=== PATIENT | female | born 1980 | race Caucasian/White ===

== ENCOUNTER 2024-09-12 09:51 | Outpatient (OUT) | payer OTHER, MEDICARE, SELFPAY ==
--- NOTE | 2024-09-12 09:59 | XR_ITS ---
[address] [address] Patient Name: LETICIA BALBUENA MRN: [id number] date: 1980 Sex: F Assigned Patient Location: [facility] Current Patient Location: Accession/Order Number: [id number] Exam Date: 09/12/2024 10:10 Report Date: 09/13/2024 04:58 At the request of: SUZY MUHAMMAD Procedure: XR DEXA axial skeleton EXAMINATION: XR DEXA axial skeleton HISTORY: Cystic Fibrosis COMPARISON: DEXA bone densitometry 09/08/2009 TECHNIQUE: Dual-energy X-ray absorptiometry (DXA) was performed. FINDINGS: SPINE ANALYSIS: Average bone mineral density is 1.095 g/cm2. T-score (standard deviation relative to young adult mean): -0.7 . -2.9% change since prior study. HIP ANALYSIS: Lowest bone mineral density is within the right femoral neck, 0.731 g/cm2. T-score (standard deviation relative to young adult mean): -2.2 . -3.7% change since prior study. XR/XR DEXA axial skeleton IMPRESSION: World Health Organization Classification: Osteoporosis - High Fracture Risk FRAX: Cannot be calculated. Pharmacologic treatment recommendations * No uniform recommendation applies to all patients. Management plans must be individualized. * Consider initiating pharmacologic treatment in postmenopausal women and men >= 50 years of age who have the following: Primary fracture prevention: * T-score <= - 2.5 at the femoral neck, total hip, lumbar spine, 33% radius (some uncertainty with existing data) by DXA. * Low bone mass (osteopenia: T-score between - 1.0 and - 2.5) at the femoral neck or total hip by DXA with a 10-year hip fracture risk >= 3% or a 10-year major osteoporosis-related fracture risk >= 20% (i.e., clinical vertebral, hip, forearm, or proximal humerus) based on the [place]-adapted FRAXregistered model. Secondary fracture prevention: * Fracture of the hip or vertebra regardless of BMD [4, 5]. * Fracture of proximal humerus, pelvis, or distal forearm in persons with low bone mass (osteopenia: T-score between - 1.0 and - 2.5). The decision to treat should be individualized in persons with a fracture of the proximal humerus, pelvis, or distal forearm who do not have osteopenia or low BMD [12, 13]. Pepe MS, Kaya SL, Luis KL, Hema EM, Sudhir KG, AJ, Alfonso ES. The clinician's guide to prevention and treatment of osteoporosis. Osteoporos Int. 2021;33(10):7501-4812. doi: 10.1007/b49258-869-09356-k. Epub 2021Feb 03. Erratum in: Osteoporos Int. 2021May 05;: PMID: [id number]; PMCID: [id number]. Electronically authenticated by: JONA GANDHI Date: 09/13/2024 04:58
== END 2024-09-12 09:52 | disposition home or self-care (01) ==
LOC: RAD 09:54
PROVIDERS: PCP Family Medicine; Visit Provider Family Medicine
DX: E84.0 Cystic fibrosis with pulmonary manifestations (principal); M81.0 Age-related osteoporosis without current pathological fracture
CPT/HCPCS: 77080

== ENCOUNTER 2025-06-13 08:42 | Emergency (ER) | payer OTHER, MEDICARE, SELFPAY ==
[2025-06-13 08:45] VITALS: BP 156/100; PULSE 87; TEMP 36.7; O2SAT 97; BMI 29.7
--- NOTE | 2025-06-13 08:54 | XR_ITS ---
The [address] [address] Patient Name: LETICIA BALBUENA MRN: [id number] date: 1980 Sex: F Assigned Patient Location: ED.MAIN Current Patient Location: ED.MAIN Accession/Order Number: [id number] Exam Date: 06/13/2025 09:00 Report Date: 06/13/2025 09:25 At the request of: JACK BARR DO Procedure: XR foot LT min 3V CLINICAL DATA: Dorsal lateral left foot and ankle pain following fall down stairs this morning. LEFT ANKLE - 3 views COMPARISON: None AP, lateral and oblique views were obtained. There is no evidence of fracture or dislocation. The talar dome is intact. There is minor anterior soft tissues. XR/XR ankle LT min 3V IMPRESSION: NO ACUTE BONY INJURY. LEFT FOOT - 3 views COMPARISON: None AP, lateral and oblique views were obtained. There is no evidence of fracture or dislocation. A tiny plantar calcaneal spur is seen. There are no significant soft tissue abnormalities. IMPRESSION: NO ACUTE BONY INJURY. Impression dictated by: Capri Gottlieb M.D. 06/13/2025 9:25 AM Dictation [facility] Electronically authenticated by: [id number] Y Date: 06/13/2025 09:25
--- NOTE | 2025-06-13 08:54 | XR_ITS ---
The [address] [address] Patient Name: LETICIA BALBUENA MRN: [id number] date: 1980 Sex: F Assigned Patient Location: ED.MAIN Current Patient Location: ED.MAIN Accession/Order Number: [id number] Exam Date: 06/13/2025 09:00 Report Date: 06/13/2025 09:25 At the request of: JACK BARR DO Procedure: XR foot LT min 3V CLINICAL DATA: Dorsal lateral left foot and ankle pain following fall down stairs this morning. LEFT ANKLE - 3 views COMPARISON: None AP, lateral and oblique views were obtained. There is no evidence of fracture or dislocation. The talar dome is intact. There is minor anterior soft tissues. XR/XR foot LT min 3V IMPRESSION: NO ACUTE BONY INJURY. LEFT FOOT - 3 views COMPARISON: None AP, lateral and oblique views were obtained. There is no evidence of fracture or dislocation. A tiny plantar calcaneal spur is seen. There are no significant soft tissue abnormalities. IMPRESSION: NO ACUTE BONY INJURY. Impression dictated by: Capri Gottlieb M.D. 06/13/2025 9:25 AM Dictation Location: [facility] Electronically authenticated by: [id number] Y Date: 06/13/2025 09:25
--- NOTE | 2025-06-13 09:08 | ED.GENADUL1 ---
HPI HPI - General Adult General Chief complaint: Extremity Injury, Lower Stated complaint: FALL LOWER EXTREMITY PAIN Time Seen by Provider: 06/13/25 08:45 Source: patient Mode of arrival: Wheelchair Limitations: no limitations History of Present Illness HPI narrative: Patient is a 44-year-old female presenting to the emergency department for evaluation of a left ankle injury. Patient states that she was walking down the stairs when she tripped, and fell down 3 stairs just prior to arrival. She states that she rolled her left ankle. She was able to stand up and bear some weight on it. She denies numbness or tingling in the foot. She denies any other injuries. She did not hit her head or lose consciousness. She is on Eliquis for left lower extremity DVT. She states her leg is chronically swollen. Related Data Home Medications ?Medication ?Instructions ?Recorded ?Confirmed apixaban 2.5 mg tablet (Eliquis) 2.5 mg PO BID 06/13/25 06/13/25 sulfamethoxazole 400 1 tab PO BID 06/13/25 06/13/25 mg-trimethoprim 80 mg tablet (Bactrim) Allergies Allergy/AdvReac Type Severity Reaction Status Date / Time amoxicillin Allergy Severe Difficulty Verified 06/13/25 08:56 Breathing cephalexin (From Keflex) Allergy Severe Hives Verified 06/13/25 08:56 clindamycin Allergy Severe Hives Verified 06/13/25 08:56 heparin Allergy Severe other Verified 06/13/25 08:56 latex Allergy Severe Hives Verified 06/13/25 08:56 Opioid HPI Opioid Management Most Recent Opioid Data: Last Pain Scale 6 Today, 08:45 Review of Systems ROS Status of ROS 10 or more systems reviewed and unremarkable except as noted in history and below [facility] Medical History (Updated 06/13/25 @ 09:33 by Bo Espinoza DO) Deep vein thrombosis ?I82.409 - Acute embolism and thrombosis of unspecified deep veins of unspecified lower extremity (ICD-10) Social History Little interest or pleasure in doing things: not at all Feeling down, depressed, or hopeless: not at all Exam Narrative Exam Narrative: CONSTITUTIONAL: Well-appearing, answering questions and following commands appropriately HEAD: Atraumatic, normocephalic SKIN: Was warm and dry. EYES: Sclerae white. EARS, NOSE, THROAT: Moist oral mucosa. RESPIRATORY: Nonlabored respirations. CARDIOVASCULAR: 2+ DP pulse on the left. The foot feels warm and well-perfused GASTROINTESTINAL: Abdomen is nondistended. MUSCULOSKELETAL: There is tenderness to palpation about the dorsum of the proximal left foot. No tenderness at the medial/medial malleoli. No tenderness at the base of the fifth metatarsal. She has limited range of motion with plantar/dorsiflexion secondary to pain. Able to wiggle all of her toes. No tenderness throughout the tibial shaft or in the knee. No deformities. Compartments soft and compressible NEUROLOGIC: Patient is awake and alert. Sensation intact to light touch throughout the left foot/ankle. Limited strength secondary to pain. Constitutional Vital Signs, click to edit/add: Last Vital Signs Temp 98.1 F 06/13/25 08:45 Pulse 87 06/13/25 08:45 Resp 18 06/13/25 08:45 BP 156/100 H 06/13/25 08:45 Pulse Ox 97 06/13/25 08:45 O2 Del Method Room Air 06/13/25 08:45 Course Vital Signs Vital signs: Vital Signs Temperature 98.1 F 06/13/25 08:45 Pulse Rate 87 06/13/25 08:45 Respiratory Rate 18 06/13/25 08:45 Blood Pressure 156/100 H 06/13/25 08:45 Pulse Oximetry 97 06/13/25 08:45 Oxygen Delivery Method Room Air 06/13/25 08:45 Temperature 98.1 F 06/13/25 08:45 Pulse Rate 87 06/13/25 08:45 Respiratory Rate 18 06/13/25 08:45 Blood Pressure 156/100 H 06/13/25 08:45 Pulse Oximetry 97 06/13/25 08:45 Oxygen Delivery Method Room Air 06/13/25 08:45 Medical Decision Making MDM Narrative Medical decision making narrative: Patient is a 44-year-old female presenting to the emergency department for evaluation of the left foot/ankle injury after a mechanical fall down 3 stairs just prior to arrival. Vital signs are normal. Her examination is noted above, however is notable for tenderness to palpation throughout the dorsum of the left foot. The foot is neurovascular intact with good perfusion. Differential diagnosis includes left ankle sprain, ankle/foot fracture, bony contusions. X-rays were obtained. X-rays of the left foot and ankle independently reviewed/interpreted by myself and radiology demonstrated no acute osseous abnormalities. I do believe the patient is stable for discharge at this time. Patient's presentation is most likely consistent with an acute ankle sprain. They were instructed to follow up with orthopedic surgery in a week if her symptoms persist. Return precautions were given including any new or worsening symptoms. They were given RICE precautions and her ankle was placed in an Ivan bandage. Patient understands and agrees to the plan. FINAL IMPRESSION: #Acute left ankle sprain DISPOSITION: Discharged home CONDITION: Good Imaging Data left ankle xray: Attestation: I personally reviewed and interpreted this imaging study as follows: Radiologist's impression: ITS Impressions Ankle X-Ray 06/13/25 08:54 IMPRESSION: NO ACUTE BONY INJURY. LEFT FOOT - 3 views COMPARISON: None AP, lateral and oblique views were obtained. There is no evidence of fracture or dislocation. A tiny plantar calcaneal spur is seen. There are no significant soft tissue abnormalities. IMPRESSION: NO ACUTE BONY INJURY. Impression dictated by: Capri Gottlieb M.D. 06/13/2025 9:25 AM Dictation Location: [employer] Electronically authenticated by: [id number] Y Date: 06/13/2025 09:25 Foot X-Ray 06/13/25 08:54 IMPRESSION: NO ACUTE BONY INJURY. LEFT FOOT - 3 views COMPARISON: None AP, lateral and oblique views were obtained. There is no evidence of fracture or dislocation. A tiny plantar calcaneal spur is seen. There are no significant soft tissue abnormalities. IMPRESSION: NO ACUTE BONY INJURY. Impression dictated by: Capri Gottlieb M.D. 06/13/2025 9:25 AM Dictation Location: [employer] Electronically authenticated by: [id number] Y Date: 06/13/2025 09:25 Discharge Plan Discharge Chief Complaint: Extremity Injury, Lower Clinical Impression: Ankle sprain and strain Patient Disposition: Home, Self-Care Time of Disposition Decision: 09:32 Condition: Good Mode of Transportation: Private Vehicle Prescriptions / Home Meds: No Action Eliquis 2.5 mg tablet 2.5 mg PO BID sulfamethoxazole-trimethoprim [Bactrim] 400-80 mg tablet 1 tab PO BID Print Language: Georgian Instructions: Ankle Sprain (ED) Additional Instructions: Follow up with ortho in 1 week should symptoms persist. Referrals: Will Spear DO [Physician, Orthopedics] - 1 week Clinical Impression: Ankle sprain and strain Cinthia Franz MD [Primary Care Provider, Family Practice] - 1 week
== END 2025-06-13 09:43 | disposition home or self-care (01) ==
PROVIDERS: Emergency Provider Student in an Organized Health Care Education/Training Program; PCP Family Medicine
DX: S93.402A Sprain of unspecified ligament of left ankle, initial encounter (principal); S96.912A Strain of unspecified muscle and tendon at ankle and foot level, left foot, initial encounter; W10.8XXA Fall (on) (from) other stairs and steps, initial encounter; X50.1XXA Overexertion from prolonged static or awkward postures, initial encounter; Z79.01 Long term (current) use of anticoagulants; I82.402 Acute embolism and thrombosis of unspecified deep veins of left lower extremity
CPT/HCPCS: 73610; 73630; 99284

== ENCOUNTER 2025-06-24 12:51 | Outpatient (RCR) | payer OTHER, MEDICARE, SELFPAY | END 2025-08-07 09:56 | disposition home or self-care (01) | LOC: PT 12:51 | PROVIDERS: PCP Family Medicine; Visit Provider Physician Assistant | DX: M25.572 Pain in left ankle and joints of left foot (principal) | CPT/HCPCS: 97110; 97112; 97162 ==

== ENCOUNTER 2025-07-24 11:53 | Outpatient (RCR) | payer OTHER, MEDICARE, SELFPAY | END 2025-07-25 11:01 | disposition home or self-care (01) | LOC: OT 11:53 | PROVIDERS: PCP Family Medicine; Visit Provider Family Medicine | DX: I89.0 Lymphedema, not elsewhere classified (principal); Z86.718 Personal history of other venous thrombosis and embolism | CPT/HCPCS: 97167; 97535 ==

== ENCOUNTER 2025-07-27 10:18 | Emergency (ER) | payer OTHER, MEDICARE, SELFPAY ==
[2025-07-27 10:21] VITALS: BP 174/90; PULSE 96; TEMP 36.9; O2SAT 98; BMI 31.3
--- NOTE | 2025-07-27 10:35 | ED.GENADUL1 ---
HPI HPI - General Adult General Chief complaint: Nausea/Vomiting/Diarrhea Stated complaint: DIARRHEA Time Seen by Provider: 07/27/25 10:29 Source: patient Mode of arrival: walk-in History of Present Illness HPI narrative: 44-year-old female presents for diarrhea. She has had it for a few days. Its been watery and no blood in it. No fever. She was around 2 family members who had the same symptoms this past week. She does not complain of nausea or vomiting. Related Data Home Medications ?Medication ?Instructions ?Recorded ?Confirmed apixaban 2.5 mg tablet (Eliquis) 2.5 mg PO BID 06/13/25 07/27/25 albuterol sulfate 90 mcg/actuation 2 puff inhalation Q6H PRN 07/27/25 07/27/25 aerosol inhaler shortness of breath or wheezing losartan 25 mg tablet 25 mg PO DAILY 07/27/25 07/27/25 triamcinolone acetonide 0.1 % 1 applic topical BID 07/27/25 07/27/25 topical cream Allergies Allergy/AdvReac Type Severity Reaction Status Date / Time amoxicillin Allergy Severe Difficulty Verified 06/13/25 08:56 Breathing cephalexin (From Keflex) Allergy Severe Hives Verified 06/13/25 08:56 clindamycin Allergy Severe Hives Verified 06/13/25 08:56 heparin Allergy Severe other Verified 06/13/25 08:56 latex Allergy Severe Hives Verified 06/13/25 08:56 Opioid HPI Opioid Management Most Recent Opioid Data: Last Pain Scale 6 06/13/25, 08:45 Review of Systems ROS Narrative A ten point review of systems is negative except as noted above. [facility] Medical History (Updated 07/27/25 @ 11:51 by Jeet Breen MD) Deep vein thrombosis ?I82.409 - Acute embolism and thrombosis of unspecified deep veins of unspecified lower extremity (ICD-10) Social History Little interest or pleasure in doing things: not at all Feeling down, depressed, or hopeless: not at all Exam Narrative Exam Narrative: Nurses note and vital signs reviewed General:The patient appears well and in no apparent distress.Patient is resting comfortably on cart. Skin:Warm, dry, no pallor noted.There is no rash noted. Head:Normocephalic, atraumatic Eye: Normal conjunctiva, no drainage Ears, Nose, Mouth, and Throat: oral mucosa is moist. Nares patent. Cardiovascular:Regular Rate and Rhythm Respiratory:Patient is in no distress, no accessory muscle use, lungs are clear to auscultation, no wheezing, rales or rhonchi Back:non-tender GI: Soft and nontender nondistended Musculoskeletal: The patient has no evidence of calf tenderness, no pitting edema, symmetrical pulses noted bilaterally Neurological:A&O, normal speech Psychiatric:Cooperative Constitutional Vital Signs, click to edit/add: Last Vital Signs Temp 98.5 F 07/27/25 10:21 Pulse 96 H 07/27/25 10:21 Resp 16 07/27/25 10:21 BP 174/90 H 07/27/25 10:21 Pulse Ox 98 07/27/25 10:21 Course Vital Signs Vital signs: Vital Signs Temperature 98.5 F 07/27/25 10:21 Pulse Rate 96 H 07/27/25 10:21 Respiratory Rate 16 07/27/25 10:21 Blood Pressure 174/90 H 07/27/25 10:21 Pulse Oximetry 98 07/27/25 10:21 Temperature 98.5 F 07/27/25 10:21 Pulse Rate 96 H 07/27/25 10:21 Respiratory Rate 16 07/27/25 10:21 Blood Pressure 174/90 H 07/27/25 10:21 Pulse Oximetry 98 07/27/25 10:21 Medical Decision Making MDM Narrative Medical decision making narrative: Blood work is nonspecific. WBC is 1.4 but this is her baseline and she sees a agronomy professor for that issue. It has been worked up extensively. She was given IV fluids and is able to be discharged home. Treatment diagnosis and follow-up were discussed with the patient. Stool culture and C. difficile test are pending. Differential Diagnosis Differential Diagnosis: Viral gastroenteritis, bacterial gastroenteritis, dehydration Lab Data Lab results reviewed: Yes I reviewed the patient's lab results Labs: Lab Results 07/27/25 Range/Units 10:57 WBC 1.4 L (4.0-11.0) 10^3/uL RBC 4.70 (4.20-5.40) 10^6/uL Hgb 14.8 (12.0-16.0) g/dL Hct 42.5 (36.0-48.0) % MCV 90.4 (81.0-99.0) fL MCH 31.5 (26.7-34.0) pg MCHC 34.8 (29.9-35.2) g/dL RDW 11.6 (11.0-15.0) % Plt Count 148 L (150-450) 10^3/uL MPV 10.0 (9.5-13.5) fL Seg Neuts % (Manual) 58.0 (43.0-75.0) Band Neutrophils % 2.0 (0-5) % Lymphocytes % (Manual) 28.0 (20.5-60.0) % Monocytes % (Manual) 10.0 (1.7-12.0) % Eosinophils % (Manual) 2.0 (0.9-7.0) % Basophils % (Manual) 0.0 L (0.2-2.0) % Neutrophils # (Manual) 0.81 L (1.4-6.5) 10^3/uL Band Neutrophils # 0.0 (0.0-0.3) 10^3/uL Lymphocytes # (Manual) 0.39 L (1.20-3.80) 10^3/uL Monocytes # (Manual) 0.14 L (0.30-0.80) 10^3/uL Eosinophils # (Manual) 0.02 (0.00-0.70) 10^3/uL Basophils # (Manual) 0.00 (0.00-0.10) 10^3/uL Sodium 136 (136-145) mmol/L Potassium 3.6 (3.5-5.1) mmol/L Chloride 101 (98-107) mmol/L Carbon Dioxide 26.3 (21.0-32.0) mmol/L Anion Gap 12.3 BUN 7.0 (7.0-18.0) mg/dL Creatinine 0.81 (0.55-1.02) mg/dL Est GFR ( Amer) >60 (>=60 mL/min/1.73m^2) Est GFR (Non-Af Amer) >60 (>=60 mL/min/1.73m^2) BUN/Creatinine Ratio 8.6 Glucose 89 (74-106) mg/dL Calcium 8.8 (8.5-10.1) mg/dL Discharge Plan Discharge Chief Complaint: Nausea/Vomiting/Diarrhea Clinical Impression: Diarrhea Patient Disposition: Home, Self-Care Time of Disposition Decision: 11:51 Condition: Good Mode of Transportation: Private Vehicle Prescriptions / Home Meds: No Action albuterol sulfate 90 mcg/actuation HFA aerosol inhaler 2 puff INHALATION Q6H PRN (Reason: shortness of breath or wheezing) losartan 25 mg tablet 25 mg PO DAILY triamcinolone acetonide 0.1 % cream 1 applic TOPICAL BID Eliquis 2.5 mg tablet 2.5 mg PO BID Print Language: Bengali Instructions: Acute Diarrhea (ED) Referrals: Cinthia Franz MD [Primary Care Provider, Family Practice] - 1 week
--- OUTSIDE RECORDS SUMMARY | 2025-07-27 10:55 | XMS_ITS | CCD ---
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 Role Phone Valentin Hunt Unavailable Sarabjit Artis Unavailable [phone] Suzy Muhammad Unavailable OKSANA, DR JONA Talbot Consulting Unavailable RIVAS, DR ALEX Alanis Attending Unavailabl e RIVAS, DR ALEX Alanis Admitting Unavailliat e MUHAMMAD, DR SUZY Mike Primary Care Unavailable YOSI ., ART ROLAND Consulting Unavailliat e JB, DR SUZY Mike Attending Unavailable OKSANA, DR JONA Talbot Consulting Unavailable JB, DR SUZY Mike Primary Care Unavailable JB, DR SUZY Mike Admitting Unavailable MUHAMMAD, DR SUZY Mike Consulting Unavailable MUHAMMAD, DR SUZY Mike Attending Unavailable OKSANA, DR JONA Talbot Consulting Unavailable JB, DR SUZY Mike Primary Care Unavailable MUHAMMAD, DR SUZY Mike Admitting Unavailable MUHAMMAD, DR SUZY Mike Consulting Unavailable Kelley Perez Unavailable Unavailable Primary Care Provider UnavailOvi Lehman DO Primary Care Provider CYNTHIA PORTILLO Attending Unavailable Suzy Muhammad MD Primary Care Provider Marlys Christianson APRN Attending Provider Michelle Spear APRN Attending Provider Merle Coelho CMA Attending Provider Unavaila Will Mendoza DO Attending Provider [phone] Suzy Muhammad MD Primary Care Provider Suzy Muhammad MD Attending Provider Allergies Allergy Classification Reported Allergen(s) Allergy Type Date of Onset Reaction(s) Facility (20 sources) Amoxicillin Drug Allergy 04-17-20 17 [facility] (13 sources) Cephalexin Drug Allergy 04-17-20 17 [facility] (20 sources) Ciprofloxacin Drug Allergy 04-17-20 17 [facility] (19 sources) Latex Propensity to adverse reactions 01-19-20 24 [facility] (12 sources) levoFLOXacin; Translations: [Levaquin] Drug Allergy 03-16-20 14 rash [facility] Repository (20 sources) moxifloxacin Drug Allergy 06-29-20 07 [facility] (9 sources) Heparin Combination Drug allergy made blood clot bigger [facility] [employer] Other (10 sources) Cephalexin; Translations: [Keflex] Drug Allergy 01-01-20 17 rash [facility] Repository (1 source) Amoxicillin Drug Allergy 06-04-20 13 [facility] (1 source) Ciprofloxacin Drug Allergy 01-01-20 17 [facility] (9 sources) Clindamycin Drug Allergy 01-19-20 24 Unknown Reaction [facility] (1 source) heparin Drug Allergy 06-04-20 13 [facility] (1 source) Latex Drug allergy (disorder) 01-01-20 17 [facility] (1 source) moxifloxacin Drug Allergy 01-01-20 17 [facility] (13 sources) Clarithromycin Drug Allergy 06-07-20 13 Unknown, Unknown Reaction [facility] Comment on above: Onset Date: 06/07/20 13 (11 sources) Clindamycin Drug Allergy 05-30-20 17 Diarrhea [facility] [employer] Other (16 sources) heparin Drug Allergy 06-07-20 13 Unknown, Unknown Reaction [facility] Comment on above: Onset Date: 06/07/20 13 (5 sources) Pseudoephedrine Drug Allergy Unknown [facility] Other (3 sources) Allergies Reconciled Propensity to adverse reactions Unknown [facility] Other (3 sources) Heparin (Porcine) in NaCl Drug allergy Unknown [facility] Other (3 sources) Biaxin *MACROLIDES* Propensity to adverse reactions Unknown [facility] Other (3 sources) Avelox *FLUOROQUINOLONES* Propensity to adverse reactions Unknown [facility] Other (3 sources) patient allergy list reviewed by nurse or physicia Propensity to adverse reactions 05-13-20 19 Comment:Done [facility] Other (3 sources) Keflex *CEPHALOSPORINS* Propensity to adverse reactions Unknown [facility] Other (11 sources) levoFLOXacin Drug Allergy 06-29-20 07 Anaphylaxis [facility] (8 sources) 12 Hour Decongestant Allergy to substance 12-07-19 24 Unknown Reaction [facility] (3 sources) heparin Drug Allergy 06-29-20 07 [facility] (3 sources) Latex Allergy to substance 04-17-20 17 Rash [facility] Healthcare Medications Current Medications Medication Drug Class(es) Dates Sig (Normalized) Sig (Original) [id number] 200 actuat albuterol 0.09 mg/actuat metered dose inhaler (17 sources) beta2-Adrenergic Agonist Start: 12-06-2023 End: 07-14-2025 Albuterol Sulfate 90 mcg/actuation HFA aerosol inhaler Active 2 PUFF INHALATION every 6 to 8 hours as needed for shortness of breath or wheezing 8.5 July 14, 2025 10:29am Complies with drug therapy take 2 puff(s) by in halation four times daily as needed for wheezing Albuterol Sulfate HFA 108 (90 Base) MCG/ACT INHALE 2 PUFFS 4 TIMES DAILY NEEDED FOR SHORTNESS OF BREATH OR WHEEZING for 25 Active take 2 puff(s) by in halation four times daily as needed for wheezing Albuterol Sulfate HFA 108 (90 Base) MCG/ACT INHALE 2 PUFFS 4 TIMES DAILY NEEDED FOR SHORTNESS OF BREATH OR WHEEZING for 25 Active take 2 puff(s) by in halation four times daily as needed for wheezing Albuterol Sulfate HFA 108 (90 Base) MCG/ACT INHALE 2 PUFFS 4 TIMES DAILY NEEDED FOR SHORTNESS OF BREATH OR WHEEZING for 25 Active apixaban 2.5 mg oral tablet (20 sources) Factor Xa Inhibitor Start: 05-15-2025 take 1 tablet by mouth in the morning Eliquis 2.5 MG tablet Take 2.5 mg by mouth in the morning and 2.5 mg before bedtime. 05/15/2025 Active Start: 03-21-2024 End: 06-30-2025 take 1 tablet by mouth twice daily Apixaban (Eliquis) 2.5 mg tablet Active 0 .ROUTE .COMPLEX 42 June 30, 2025 8:38am TAKE 1 TABLET BY MOUTH TWICE A DAY FOR 30 DAYS Complies with drug therapy Start: 12-06-2023 End: 03-21-2024 take 1 tablet by mouth twice daily Apixaban (Eliquis) 2.5 mg tablet Discontinued 2.5 MG PO Twice daily December 06, 2023 1:00am March 21, 2024 2:58pm take 1 tablet by corinne th twice daily Eliquis 2.5 MG TAKE 1 TABLET BY MOUTH TWICE A DAY for 30 Active biotin 5 mg oral tablet (19 sources) Start: 12-06-2023 take 1 tablet by mouth once daily Biotin 5 mg tablet Active 5 MG PO Daily December 06, 2023 1:00am Complies with drug therapy Biotin Active cholecalciferol 0.025 mg oral capsule (8 sources) Vitamin D Start: 12-06-2023 take 1 capsule by mouth once daily Cholecalciferol (Vitamin D3) 25 mcg (1,000 unit) capsule Active 25 MCG PO Daily December 06, 2023 1:00am Complies with drug therapy fluconazole 150 mg oral tablet (4 sources) Azole Antifungal Start: 06-02-2025 End: 06-02-2025 take 1 tablet by mouth once, then take 1 tablet by mouth once fluconazole (Diflucan) 150 MG tablet Indications: Yeast infection Take 1 tablet (150 mg) by mouth 1 (one) time for 1 dose This is a 1 time dose, take single tablet by mouth. 1 tablet 1 06/02/2025 06/02/2025 Active Start: 12-27-2022 take 1 tablet by mouth once Fl uconazole 150 MG 1 tablet Orally once for 10 days Dec, Active hydroxychloroquine sulfate 200 mg oral tablet (6 sources) Antimalarial, Antirheumatic Agent Hydroxychloroquine Sulfate 200 MG as directed Orally DIRECTED Active Iron (2 sources) take 1 tablet by mouth three times weekly Iron 325 (65 Fe) MG 1 tablet Orally 3 TIMES A WEEK Active losartan potassium 25 mg oral tablet (1 source) Angiotensin 2 Receptor Placido Start: 2024 take 1 tablet by mouth once daily Losartan 25 mg tablet Active 25 MG PO Daily July 14, 2025 12:00am Complies with drug therapy Multivitamin preparation (14 sources) Start: 2023 take 1 tablet by mouth once daily Multivitamin Active 1 TAB PO Daily December 06, 2023 1:00am Multivitamin Act tamiko Multivitamin tablet (5 sources) Start: 12-06-2023 take 1 tablet by mouth once daily Multivitamin tablet Active 1 TAB PO Daily December 06, 2023 1:00am Complies with drug therapy Start: 12-06-2023 take 1 tablet by corinne th once daily Multivitamin tablet Active 1 TAB PO Daily December 06, 2023 1:00am Start: 12-06-2023 take 1 tablet by corinne th once daily Multivitamin tablet Active 1 TAB PO Daily December 06, 2023 12:00am nystatin [id number] unt/ml oral suspension (20 sources) Polyene Antifungal Start: 12-06-2023 End: 07-14-2025 take 1 mL by mouth four times daily as needed take 5 mL by mouth f our times daily as needed Nystatin [id number] UNIT/ML TAKE 5 ML BY CORINNE TH 4 TIMES DAILY NEEDED for 20 Active take 5 mL by mouth f our times daily as needed Nystatin [id number] UNIT/ML TAKE 5 ML BY CORINNE TH 4 TIMES DAILY NEEDED for 20 Active Nystatin Active pantoprazole 40 mg delayed release oral tablet (20 sources) Proton Pump Inhibitor Start: 12-06-2023 take 1 tablet by mouth once daily Pantoprazole (Protonix) 40 mg tablet,delayed release (DR/EC) Active 40 MG PO Daily December 06, 2023 1:00am Complies with drug therapy Start: 08-10-2021 take 1 tablet by corinne th every twelve hours Pantoprazole Sodium 40 MG 1 tablet Orally TWICE A DAY for 90 days Aug, Active take 1 tablet by corinne th every twenty-four hours Protonix 40 MG 1 tablet Orally Once a day Active sulfamethoxazole 800 mg / trimethoprim 160 mg oral tablet (3 sources) Dihydrofolate Reductase Inhibitor Antibacterial, Sulfonamide Antimicrobial Start: 06-02-2025 End: 06-07-2025 take 1 tablet by mouth once in the morning, then take 1 tablet by mouth once at bedtime sulfamethoxazole-trimethoprim (Bactrim DS) 800-160 MG per tablet Indications: Vaginal discharge Take 1 tablet by mouth in the morning and 1 tablet before bedtime. Do all this for 5 days. 10 tablet 06/02/2025 06/07/2025 Active triamcinolone acetonide 1 mg/ml topical cream (12 sources) Corticosteroid Start: 07-14-2025 End: 07-14-2025 Triamcinolone Acetonide 0.1 % cream Active 1 APPLIC TOPICAL Twice daily as needed for rash July 14, 2025 10:29am Complies with drug therapy Start: 12-06-2023 End: 07-14-2025 Triamcinolone Acetonide 0.1 % cream Discontinued 1 APPLIC TOPICAL Twice daily December 06, 2023 1:00am July 14, 2025 10:09am Start: 09-13-2023 Triamcinolone Acetonide 0.1 % 1 application Externally Twice a day for 10 days Sep, Active Start: 09-13-2023 Triamcinolone Acetonide 0.1 % 1 application Externally Twice a day for 10 days Sep, Active Vitamin D3 (11 sources) Vitamin D3 Activ e Completed/Discontinued Medications Medication Drug Class(es) Dates Sig (Normalized) Sig (Original) azithromycin 250 mg oral tablet (12 sources) Macrolide Antimicrobial Start: 03-30-2025 End: 06-19-2025 Azithromycin (Zithromax) 250 mg tablet Discontinued 0 PO .COMPLEX March 30, 2025 12:00am June 19, 2025 10:55am For 250 mg dose pack: take 500 mg today (day 1), then 250 mg for 4 days (days 2-5) PO Start: 07-18-2024 End: 08-19-2024 Azithromycin 250 mg tablet D iscontinued 0 PO .COMPLEX July 18, 2024 12:00am August 19, 2024 10:55am For 250 mg dose pack: take 500 mg today (day 1), then 250 mg for 4 days (days 2-5) PO Start: 07-18-2024 Azithromycin A ctive 0 PO .COMPLEX July 18, 2024 12:00am For 250 mg dose pack: take 500 mg today (day 1), then 250 mg for 4 days (days 2-5) PO Start: 10-11-2023 Azithromycin 2 50 MG 2 tablet on the first day, then 1 tablet daily for 4 days Orally Once a day for 5 day(s) Oct, Active Start: 12-08-2022 Azithromycin 2 50 MG as directed Orally 2 tabs po today, then 1 tab daily x 4 more days for 5 Dec, Active benzonatate 200 mg oral capsule (2 sources) Non-narcotic Antitussive Start: 03-30-2025 End: 07-14-2025 take 1 capsule by mouth twice daily as needed for cough Benzonatate 200 mg capsule Discontinued 200 MG PO Twice daily as needed for cough March 30, 2025 12:00am July 14, 2025 10:08am ferrous sulfate 325 mg oral tablet (17 sources) Start: 12-06-2023 End: 11-06-2024 take 1 tablet by mouth three times weekly Ferrous Sulfate 325 mg (65 mg iron) tablet Discontinued 0 PO .COMPLEX December 06, 2023 1:00am November 06, 2024 10:25am 1 tablet Orally 3 TIMES A WEEK Start: 12-06-2023 End: 11-06-2024 take 1 tablet by mouth three times weekly Ferrous Sulfate 325 mg (65 mg iron) tablet Discontinued 0 PO .COMPLEX December 06, 2023 1:00am November 06, 2024 10:25am 1 tablet Orally 3 TIMES A WEEK Start: 12-06-2023 End: 11-06-2024 take 1 tablet by mouth three times weekly Ferrous Sulfate 325 mg (65 mg iron) tablet Discontinued 0 PO .COMPLEX December 06, 2023 12:00am November 06, 2024 9:25am 1 tablet Orally 3 TIMES A WEEK Start: 12-06-2023 [facility] Ferrous Sulfate 325 mg (65 mg iron) tablet Active 0 PO .COMPLEX December 06, 2023 12:00am 1 tablet Orally 3 TIMES A WEEK Start: 12-06-2023 [facility] Ferrous Sulfate Active 0 PO .COMPLEX December 06, 2023 1:00am 1 tablet Orally 3 TIMES A WEEK take 1 tablet by [facility] three times weekly Iron 325 (65 Fe) MG 1 tablet Orally 3 TIMES A WEEK Active fluticasone propionate 0.05 mg/actuat metered dose nasal spray (16 sources) Corticosteroid Start: 12-07-2023 End: 08-19-2024 take 1 spray(s) nasal route twice daily Fluticasone Propionate (Flonase Allergy Relief) 50 mcg/actuation spray,suspension Discontinued 1 SPRAY INTRANASAL Twice daily December 20, 2023 8:20am August 19, 2024 10:56am administer into each nostril metroNIDAZOLE 500 mg oral tablet (2 sources) Nitroimidazole Antimicrobial Start: 06-19-2025 End: 07-14-2025 take 1 tablet by mouth twice daily Metronidazole 500 mg tablet Discontinued 500 MG PO Twice daily June 19, 2025 12:00am July 14, 2025 10:08am predniSONE 10 mg oral tablet (20 sources) Start: 03-12-2024 End: 08-19-2024 take 1 tablet by mouth twice daily Prednisone 10 mg tablet Discontinued 0 .ROUTE .COMPLEX 42 August 15, 2024 9:25am August 19, 2024 10:56am TAKE 1 TABLET BY MOUTH TWICE A DAY Start: 02-15-2024 End: 03-12-2024 take 1 tablet by mouth twice daily Prednisone 10 mg tablet Discontinued 10 MG PO Twice daily February 15, 2024 12:00am March 12, 2024 3:31pm Start: 01-19-2024 End: 02-15-2024 take 1 tablet by mouth twice daily Prednisone 20 mg tablet Discontinued 20 MG PO Twice daily January 19, 2024 12:00am February 15, 2024 12:24pm take 1 tablet by corinne every twenty-four hours predniSONE 20 MG 1 tablet Orally Once a day for 5 days Not-Taking/PRN take 1 tablet by corinne once daily prednisone 10 mg 1 tablet Orally Once a day for 7 days Active take 1 tablet by corinne twice daily as needed predniSONE 20 MG 1 tablet Orally BID PRN for 5 days Active tiZANidine 2 mg oral tablet (10 sources) Central alpha-2 Adrenergic Agonist Start: 12-06-2023 End: 01-19-2024 take 1 tablet by mouth three times daily as needed Tizanidine 2 mg tablet Discontinued 2 MG PO Three times daily as needed December 06, 2023 1:00am January 19, 2024 9:54am Start: 09-13-2023 take 1 tablet by corinne every eight hours tiZANidine HCl 2 MG 1 tablet as needed Orally Three times a day for 10 days Sep, Active Problems Active Problems Problem Classification Problem Date Documented Date Episodic/Chronic Acute and chronic tonsillitis (1 source) Acute tonsillitis, unspecified Episodic Acute bronchitis (5 sources) Acute bronchitis; Translations: [Acute bronchitis, unspecified] Episodic Allergic reactions (7 sources) Atopic dermatitis; Translations: [Atopic dermatitis, unspecified] Chronic Allergic reactions (10 sources) Allergy to peanut; Translations: [Allergy to peanuts] Onset: 4 Episodic Chronic obstructive pulmonary disease and bronchiectasis (13 sources) Bronchitis, not specified as acute or chronic; Translations: [Bronchitis] Episodic Coagulation and hemorrhagic disorders (18 sources) Hypercoagulability state; 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 Cystic fibrosis (20 sources) Cystic fibrosis of the lung; 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] Onset: 7 Chronic Diseases of mouth; excluding dental (5 sources) Recurrent aphthous stomatitis; Translations: [Recurrent oral aphthae] Episodic Diseases of white blood cells (5 sources) Neutropenia; Translations: [Neutropenia, unspecified] Onset: 5 Chronic Esophageal disorders (20 sources) Gastroesophageal reflux disease; Translations: [Gastro-esophageal reflux disease without esophagitis] Onset: 1 Resolved: 2 Chronic Genitourinary symptoms and ill-defined conditions (2 sources) Urinary symptoms ; Translations: [Unspecified symptoms and signs involving the genitourinary system] 06-02-2025 Episodic Immunity disorders (5 sources) Predominantly T-cell defect; 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 Immunizations and screening for infectious disease (5 sources) Vaccination given; Translations: [Encounter for immunization] Episodic Menopausal disorders (5 sources) Premenopausal menorrhagia; Translations: [Excessive bleeding in the premenopausal period] Onset: 9 Chronic Menstrual disorders (5 sources) Intermenstrual bleeding - irregular; Translations: [Excessive and frequent menstruation with irregular cycle] Chronic Mycoses (19 sources) Candidiasis of mouth; Translations: [Candidal stomatitis] 07-24-2024 Episodic Nonmalignant breast conditions (16 sources) Breast lump; Translations: [Unspecified lump in the left breast, unspecified quadrant] Onset: 2 Episodic Osteoporosis (12 sources) Age-related osteoporosis without current pathological fracture; Translations: [Primary osteoporosis] Onset: 2 11-06-2024 Chronic Other connective tissue disease (8 sources) Pain in limb; Translations: [Pain in left leg] Episodic Other connective tissue disease (5 sources) Pain in left lower limb; Translations: [Pain in left leg] Episodic Other ear and sense organ disorders (3 sources) Otalgia, right ear; Translations: [Right ear pain] 04-01-2025 Episodic Other female genital disorders (5 sources) Abnormal vaginal bleeding; Translations: [Other disorder of menstruation and other abnormal bleeding from female genital tract] Onset: 5 Chronic Other female genital disorders (2 sources) Vaginal discharge; Translations: [Other specified noninflammatory disorders of vagina] 06-02-2025 Episodic Other gastrointestinal disorders (11 sources) Dysphagia; Translations: [Dysphagia, unspecified] Episodic Other nutritional; endocrine; and metabolic disorders (5 sources) Body mass index 25-29 - overweight; Translations: [Body mass index (BMI) 26.0-26.9, adult] Episodic Other screening for suspected conditions (not mental disorders or infectious disease) (8 sources) Patient encounter status; Translations: [Encounter for screening mammogram for malignant neoplasm of breast] 11-06-2024 Episodic Other skin disorders (5 sources) Acquired keratoderma; Translations: [Acquired keratosis [keratoderma] palmaris et plantaris] Episodic Other skin disorders (1 source) Localized swelling, mass and lump, right lower limb Episodic Other skin disorders (6 sources) Rash and other nonspecific skin eruption; Translations: [Rash of face] 02-15-2024 Episodic Other upper respiratory disease (8 sources) Allergic rhinitis; Translations: [Allergic rhinitis, unspecified] 12-07-2023 Chronic Other upper respiratory disease (4 sources) Allergic rhinitis, unspecified; Translations: [Allergic rhinitis, cause unspecified] 12-07-2023 Chronic Other upper respiratory infections (5 sources) Chronic sinusitis; Translations: [Chronic sinusitis, unspecified] Chronic Other upper respiratory infections (9 sources) Acute maxillary sinusitis; Translations: [Acute recurrent maxillary sinusitis] Onset: 7 Episodic Otitis media and related conditions (10 sources) Dysfunction of eustachian tube; Translations: [Unspecified Eustachian tube disorder, unspecified ear] 12-07-2023 Episodic Phlebitis; thrombophlebitis and thromboembolism (20 sources) Personal history of other venous thrombosis and embolism; Translations: [History of thrombophlebitis] Onset: 7 Episodic Skin and subcutaneous tissue infections (18 sources) Cellulitis of left lower limb; Translations: [Cellulitis of left lower limb] Onset: 8 Episodic Sprains and strains (5 sources) Strain of other muscles, fascia and tendons at shoulder and upper arm level, right arm, initial encounter; Translations: [Sprain of left ankle] Episodic Systemic lupus erythematosus and connective tissue disorders (20 sources) Systemic lupus erythematosus; Translations: [Systemic lupus erythematosus, unspecified] 08-19-2024 Chronic Unclassified (1 source) Unspecified lump in the right breast, overlapping quadrants; Translations: [UNS LUMP RT BREAST OVRLPNG QUADRNTS] Onset: 2 Unclassified (5 sources) Exposure to acute respiratory syndrome coronavirus 2; Translations: [Contact with and (suspected) exposure to COVID-19] Unclassified (2 sources) Patient encounter status; Translations: [Z12.11 - Encounter for screening for malignant neoplasm of colon] Viral infection (5 sources) Disease caused by 2019-nCoV; Translations: [COVID-19] Past or Other Problems Problem Classification Problem Date Documented Da te Episodic/Chronic Abdominal pain (3 sources) Unspecified abdominal pain; Translations: [UNSPECIFIED ABDOMINAL PAIN] Onset: 06-16-2022 Episodic Bacterial infection; unspecified site (5 sources) Bacterial infectious disease; Translations: [Bacterial infection, unspecified, in conditions classified elsewhere and of unspecified site] Onset: 01-16-2017 Episodic Disorders of teeth and jaw (5 sources) Cementum caries; Translations: [Dental root caries] Onset: 04-24-2017 Episodic E Codes: Fall (1 source) Fall (on) (from) unspecified stairs and steps, initial encounter; Translations: [FALL ON FROM UNS STAIRS STEPS INIT] Onset: 06-20-2022 Episodic Other aftercare (1 source) 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; Translations: [CHANGE OVER CURRNT USE ANTICOAGULANTS] Onset: 06-20-2022 Episodic Other aftercare (1 source) Other alf (current) drug therapy; Translations: [OTH CHANGE OVER CURRENT DRUG THERAPY] Onset: 06-20-2022 Episodic Other connective tissue disease (4 sources) Pain in left leg; Translations: [PAIN IN LEFT LEG] Onset: 09-27-2022 Episodic Other ear and sense organ disorders (5 sources) Impacted cerumen; Translations: [Impacted cerumen] Onset: 12-19-2017 Episodic Other gastrointestinal disorders (1 source) Dysphagia, unspecified Onset: 08-10-2021 Resolved: 08-10-2021 Episodic Other non-traumatic joint disorders (5 sources) Arthralgia of the ankle and/or foot; Translations: [Pain in joint, ankle and foot] Onset: 11-02-2018 Episodic Pulmonary heart disease (5 sources) Pulmonary embolism; Translations: [Other pulmonary embolism without acute cor pulmonale] Onset: 04-03-2017 Episodic Superficial injury; contusion (1 source) Contusion of unspecified front wall of thorax, initial encounter; Translations: [CONTUS UNS FRONT WALL THORAX INIT] Onset: 06-20-2022 Episodic Results Test Name Value Interpretation Reference Range Facility RECURRENT VAGINITIS (HTRX)on 06-03-2025 ATOPOBIUM VAGINAE 18.276 Abnormal [facility] ATOPOBIUM VAGINAE Detected Abnormal [facility] BVAB 2,3 (BACTERIAL VAGINOSIS ASSOCIATED BACTERIA 2, 3); MOBILUNCUS SPP 0 [facility] BVAB 2,3 (BACTERIAL VAGINOSIS ASSOCIATED BACTERIA 2, 3); MOBILUNCUS SPP Not detected [facility] BHAVNA ALBICANS, PARAPSILOSIS, TROPICALIS 0 [facility] BHAVNA ALBICANS, PARAPSILOSIS, TROPICALIS Not detected [facility] BHAVNA GLABRATA 0 [facility] BHAVNA GLABRATA Not [facility] BH[facility] KRUSEI [facility] BHAVNA KRUSEI Not [facility] CHLAMYDIA TRACHOMATIS 0 [facility] Healthcare CHLAMYDIA TRACHOMATIS Not detected [facility] Healthcare ERMB, C; MEFA 24.486 Abnormal [facility] Health care ERMB, C; MEFA Detected Abnormal [facility] care GARDNERELLA VAGINALIS 21.752 Abnormal [facility] Healthcare GARDNERELLA VAGINALIS Detected Abnormal [facility] Interpretation and review of laboratory results Abnormal [facility] re MEGASPHAERA (TYPES 1, 2) 17.748 Abnormal [facility] MEGASPHAERA (TYPES 1, 2) Detected Abnormal [facility] MYCOPLASMA GENITALIUM 0 [facility] MYCOPLASMA GENITALIUM Not detected [facility] NEISSERIA GONORRHOEAE 0 [facility] NEISSERIA GONORRHOEAE Not detected [facility] TET B, TET M 20.722 Abnormal [facility], T[facility] M Detected Abnormal [facility] are TRICHOMONAS VAGINALIS 0 [facility] TRICHOMONAS VAGINALIS Not detected [facility] macro (dipstick) panel (U)on 06-02-2025 Bilirubin, UA 1+ Negative - 4(70) +++ mg/dL [facility] Blood, UA Positive Negative - 50 Al/mcL [facility] Clarity, UA Clear [facility] re Color, UA Katalina [facility] Glucose, UA Negative Negative - 2000(110) ++++ mg/dL [facility] Interpretation and review of laboratory results Abnormal [facility] re Ketones, UA Negative Negative - 160(16) ++++ mg/dL [facility] Leukocytes, UA 1+ Negative - 500+++ Caleb/mcL [facility] Nitrite, UA Negative Negative - Positive [facility] pH, UA 5.5 5 - 9 [facility] Protein, UA 1+ Negative - 2000(20) ++++ mg/dL [facility] Spec Grav, UA 1.03 1 - 1.03 [facility] Urobilinogen, UA 1.0 0.2 - 12 mg/dL [facility] Quick Strepon 10-11-2023 S. pyogenes Org specific cx Ql (Throat) Negative [facility] Other Quick Strep [facility] Other REGGIE DOP LEG LTon 09-27-20 US REGGIE DOP LEG LT EXAMINATION: US REGGIE DOP LEG LT HISTORY: Pain in left leg COMPARISON: No relevant comparison available. FINDINGS: REGION: Left lower extremity. THROMBI: None. COMPRESSIBILITY: Normal compressibility. FLOW: Normal waveform and antegrade flow between 5 and 20 cm/s. OTHER: None. IMPRESSION: 1. No deep vein thrombus within the left lower extremity. Electronically authenticated by: JONA COOK Date: 2022-09-27 14:59 Normal [facility] CBC AUTO DIFFon 06-16-2022 BASO # 0.0 103/ul Normal 0.0-0.1 [facility] Comment on above: Performed By: #### C BC #### [facility] [address] [address] [address] Hilaria Luna Basophils/100 WBC (Bld) 0.0 % Critically low 0.2-2.0 [facility] Comment on above: Performed By: #### C BC #### [facility] [address] [address] [address] Hilaria Luna EO # 0.0 103/ul Normal 0.0-0.7 [facility] Comment on above: Performed By: #### C BC #### [facility] [address] [address] [address] Hilaria Luna Eosinophils/100 WBC (Bld) 0.0 % Critically low 0.9-7.0 [facility] Comment on above: Performed By: #### C BC #### [facility] [address] [address] [address] Hilaria Luna Erythrocyte distribution width (RBC) [Ratio] 13.4 % Normal 11.0-15.0 [facility] Comment on above: Performed By: #### C BC #### [facility] [address] [address] [address] Hilaria Luna Hematocrit (Bld) [Volume fraction] 34.2 % Critically low 36.0-48.0 [facility] Comment on above: Performed By: #### C BC #### [facility] [address] [address] [address] Hilaria Luna Hemoglobin (Bld) [Mass/Vol] 10.7 g/dL Critically low 12.0-16.0 [facility] Comment on above: Performed By: #### C BC #### [facility] [address] [address] [address] Hilaria Luna IG # 0.01 10e3/ul Normal 0.00-0.03 [facility] Comment on above: Performed By: #### C BC #### [facility] [address] [address] [address] Hilaria Luna IG % 0.4 % Normal 0.0-0.5 [facility] Comment on above: Performed By: #### C BC #### [facility] [address] [place] [address] Dr. Hilaria Luna LYMPH # 0.4 103/ul Critically low 1.2-3.8 [facility] Comment on above: Performed By: #### C BC #### [facility] [address] [place] [address] Dr. Hilaria Luna Lymphocytes/100 WBC (Bld) 15.0 % Critically low 20.5-60.0 [facility] Comment on above: Performed By: #### C BC #### [facility] [address] [place] [address] Dr. Hilaria Luna MANUAL DIFF REQ NO Normal [facility] Comment on above: Performed By: #### C BC #### [facility] [address] [place] [address] Dr. Hilaria Luna MCH (RBC) [Entitic mass] 27.9 pg Normal 26.7-34.0 [facility] Comment on above: Performed By: #### C BC #### [facility] [address] [place] [address] Dr. Hilaria Luna MCHC (RBC) [Mass/Vol] 31.3 g/dL Normal 29.9-35.2 [facility] Comment on above: Performed By: #### C BC #### [facility] [address] [place] [address] Dr. Hilaria Luna MCV (RBC) [Entitic vol] 89.3 fL Normal 81.0-99.0 [facility] Comment on above: Performed By: #### C BC #### [facility] [address] [place] [address] Dr. Hilaria Luna MONO # 0.1 103/ul Critically low 0.3-0.8 [facility] Comment on above: Performed By: #### C BC #### [facility] [address] [address] [address] Hilaria Luna Monocytes/100 WBC (Bld) 4.3 % Normal 1.7-12.0 [facility] Comment on above: Performed By: #### C BC #### [facility] [address] [address] [address] Hilaria Luna NEUT # 2.0 103/ul Normal 1.4-6.5 [facility] Comment on above: Performed By: #### C BC #### [facility] [address] [address] [address] Hilaria Luna Neutrophils/100 WBC (Bld) 80.3 % Critically high 43.0-75.0 [facility] Comment on above: Performed By: #### C BC #### [facility] [address] [place] [address] Dr. Hilaria Luna Platelet mean volume (Bld) [Entitic vol] 10.3 fL Normal 9.5-13.5 [facility] Comment on above: Performed By: #### C BC #### [facility] [address] [address] [address] Hilaria Luna PLT 185 103/ul Normal 150-450 [facility] Comment on above: Performed By: #### C BC #### [facility] [address] [place] [address] Dr. Hilaria Luna RBC 3.83 106/ul Critically low 4.20-5.40 [facility] Comment on above: Performed By: #### C BC #### [facility] [address] [place] [address] Dr. Hilaria Luna WBC 2.5 103/ul Critically low 4.0-11.0 [facility] Comment on above: Performed By: #### C BC #### [facility] [address] [place] [address] ABD/PELV W CONon 06-16-[address] ABD/PELV W CON EXAMINATION: CT CHES T W CON, CT ABD/PELV W CON HISTORY: Unspecified fall ; lower left rib pain after falling COMPARISON: No relevant comparison available. TECHNIQUE: Axial, Coronal, and Sagittal CT images were obtained without and/or with IV contrast as indicated by examination type. Dose reduction techniques were achieved by using automated exposure control and/or adjustment of mA and/or kV according to patient size and/or use of iterative reconstruction technique. FINDINGS: LUNGS: No visible pulmonary disease. PLEURA: No mass or effusion. VASCULATURE: No visible pulmonary arterial thrombus or attenuation. SHELDON: No mass or adenopathy. MEDIASTINUM: No mass or adenopathy. CARDIAC: No enlargement, pericardial thickening, or pericardial effusion. CHEST WALL: No mass or axillary adenopathy. LIVER: Small right hepatic lobe hypodensity favoring a cyst or hemangioma. BILIARY: No dilatation or calcification. PANCREAS: No lesion, fluid collection, ductal dilatation, or atrophy. SPLEEN: No enlargement or focal lesion. ADRENALS: No mass or enlargement. KIDNEYS: Right renal cyst. No mass, obstruction, or calcification. BOWEL/MESENTERY: No visible mass, obstruction, or bowel wall thickening. AORTA/VASCULAR: No aneurysm. RETROPERITONEUM: No mass or adenopathy. LYMPH NODES: No adenopathy. URINARY BLADDER: No visible focal wall thickening, lesion, or calculus. PELVIC ORGANS: Abnormal thickening of the endometrium, 26 mm versus mass. ABDOMINAL WALL: No mass or hernia. BONES: No bony lesion or fracture. OTHER: Negative. IMPRESSION: 1. No appreciable rib abnormality or abnormal finding of the musculature of the left lateral abdominal wall to account for patient's symptoms. 2. Abnormal appearance of the uterus with abnormally thickened endometrium versus mass/leiomyoma. Consider nonemergent ultrasound follow-up. Electronically authenticated by: JONA COOK Date: 2022-06-16 18:25 Normal [facility] PROF CHEM 8 (BAS METB)on Anion gap [Moles/Vol] 9.5 mmol/L Normal [facility] Comment on above: Performed By: #### B MP #### [facility] [address] [place] [address] Dr. Hilaria Luna Calcium [Mass/Vol] 8.9 mg/dL Normal 8.5-10.1 [facility] Comment on above: Performed By: #### B MP #### [facility] [address] [address] [address] Hilaria Luna Chloride [Moles/Vol] 106 mmol/L Normal 98-107 [facility] Comment on above: Performed By: #### B MP #### [facility] [address] [address] [address] Hilaria Luna CO2 [Moles/Vol] 29.3 mmol/L Normal 21.0-32.0 [facility] Comment on above: Performed By: #### B MP #### [facility] [address] [address] [address] Hilaria Luna Creatinine [Mass/Vol] 0.85 mg/dL Normal 0.55-1.02 [facility] Comment on above: Performed By: #### B MP #### [facility] [address] [address] [address] Hilaria Lnua EGFR-AF WALLISIAN >60 Normal >=[address] [facility] Comment on above: Performed By: #### B MP #### [facility] [address] [address] [address] Hilaria Luna EGFR-NON AF WALLISIAN >60 Normal >=60 [facility] Comment on above: Performed By: #### B MP #### [facility] [address] [address] [address] Hilaria Luna Glucose [Mass/Vol] 112 mg/dL Critically high 74-106 [facility] Comment on above: Performed By: #### B MP #### [facility] [address] [address] [address] Hilaria Luna Potassium [Moles/Vol] 3.8 mmol/L Normal 3.5-5.1 [facility] Comment on above: Performed By: #### B MP #### [facility] [address] [address] [address] Hilaria Luna Sodium [Moles/Vol] 141 mmol/L Normal 136-145 [facility] Comment on above: Performed By: #### B MP #### [facility] [address] [address] [address] Hilaria Luna Urea nitrogen [Mass/Vol] 13.0 mg/dL Normal 7.0-18.0 [facility] Comment on above: Performed By: #### B MP #### [facility] [address] [place] [address] Dr. Hilaria Luna Urea nitrogen/Creatinine [Mass ratio] 15.3 mg/mg Normal [facility] Comment on above: Performed By: #### B MP #### [facility] [address] [place] [address] Dr. Hilaria Luna PROTIMEon 06-16-2022 INR Coag (PPP) [Relative time] 1.02 {INR} Normal [facility] Comment on above: Performed By: #### P TT, PT #### [facility] [address] [place] [address] Dr. Hilaria Luna INR GUIDELINES SEE BELOW Normal [facility] Comment on above: Result Comment: BRENDA RED INR: 2.0 - 3.0 CONDITIONS NOT LISTED BELOW 2.5 - 3.5 FOR PROSTHETIC HEART VALVE REPLACEMENT 2.5 - 3.5 RECURRENT THROMBOSIS Performed By: #### P TT, PT #### [facility] [address] [place] [address] Dr. Hilaria Luna PT Coag (PPP) [Time] 11.0 s Normal 9.0-11.6 [facility] Comment on above: Performed By: #### P TT, PT #### [facility] [address] [place] [address] Dr. Hilaria Luna PTTon 06-16-2022 aPTT Coag (Bld) [Time] 24.5 s Normal 22.3-36.2 [facility] Comment on above: Performed By: #### P TT, PT #### [facility] [address] [place] [address] Dr. Hilaria Luna MG MAMM BRY DIAG W CADon MG MAMM BRY DIAG W CAD Patient: SASKIA BALBUENA Exam Date: 02/22/2022 : 1980 Gender:F Ordering : DR SUZY MUHAMMAD M.D. Admission #: [id number] Family : Order #: [id number] CLICK HERE TO VIEW EXAM RADIOLOGY REPORT PROCEDURE: MAMMOGRAM BILATERAL DIAGNOSTIC DIGITAL WITH COMPUTER AIDED DETECTION, 02/22/2022, 14:00 ULTRASOUND BREAST RIGHT LIMITED, 02/22/2022, 14:50 COMPARISON: None. INDICATIONS: Lump in right breast Calculator Name NCI Breast Cancer Risk Assessment Tool 5 Year Breast Cancer Risk 0.70% Lifetime Breast Cancer Risk 10.00% Personal Breast Cancer No Personal Ovarian Cancer No Treatments None Family Cancers None LOCATION: [facility] BREAST COMPOSITION: Heterogeneously dense,which may obscure small masses. FINDINGS: DIAGNOSTIC CATEGORY 2--BENIGN FINDING: RIGHT BREAST: A skin surface marker is present over the medial breast, 3 o'clock, localizing the patient's palpable lump; no underlying mammographic abnormality. Partially circumscribed mass at approximately the 9 o'clock position, anterior breast. Ultrasound evaluation demonstrates a benign-appearing cyst at the 10 o'clock position 1.1 x 0.4 x 0.8 cm. No abnormal findings within the medial breast where the patient describes a palpable lump. Annual screening mammography is recommended. LEFT BREAST: No significant suspicious finding. RECOMMENDATIONS: ROUTINE MAMMOGRAM AND CLINICAL EVALUATION IN 12 MONTHS. PLEASE NOTE: A NORMAL MAMMOGRAM DOES NOT EXCLUDE THE POSSIBILITY OF BREAST CANCER. A CLINICALLY SUSPICIOUS PALPABLE LUMP SHOULD BE BIOPSIED. Dictated by: Jona Cook M.D. on 02/22/2022 at 15:11 Approved by: Jona Cook M.D. on 02/22/2022 at 15:14 Normal [facility] US BREAST RIGHT LIMITEDon US BREAST RIGHT LIMITED Patient: SASKIA BALBUENA Exam Date: 02/22/2022 : 1980 Gender:F Ordering : DR SUZY MUHAMMAD M.D. Admission #: [id number] Family : Order #: [id number] CLICK HERE TO VIEW EXAM RADIOLOGY REPORT PROCEDURE: MAMMOGRAM BILATERAL DIAGNOSTIC DIGITAL WITH COMPUTER AIDED DETECTION, 02/22/2022, 14:00 ULTRASOUND BREAST RIGHT LIMITED, 02/22/2022, 14:50 COMPARISON: None. INDICATIONS: Lump in right breast Calculator Name NCI Breast Cancer Risk Assessment Tool 5 Year Breast Cancer Risk 0.70% Lifetime Breast Cancer Risk 10.00% Personal Breast Cancer No Personal Ovarian Cancer No Treatments None Family Cancers None LOCATION: [facility] BREAST COMPOSITION: Heterogeneously dense,which may obscure small masses. FINDINGS: DIAGNOSTIC CATEGORY 2--BENIGN FINDING: RIGHT BREAST: A skin surface marker is present over the medial breast, 3 o'clock, localizing the patient's palpable lump; no underlying mammographic abnormality. Partially circumscribed mass at approximately the 9 o'clock position, anterior breast. Ultrasound evaluation demonstrates a benign-appearing cyst at the 10 o'clock position 1.1 x 0.4 x 0.8 cm. No abnormal findings within the medial breast where the patient describes a palpable lump. Annual screening mammography is recommended. LEFT BREAST: No significant suspicious finding. RECOMMENDATIONS: ROUTINE MAMMOGRAM AND CLINICAL EVALUATION IN 12 MONTHS. PLEASE NOTE: A NORMAL MAMMOGRAM DOES NOT EXCLUDE THE POSSIBILITY OF BREAST CANCER. A CLINICALLY SUSPICIOUS PALPABLE LUMP SHOULD BE BIOPSIED. Dictated by: Jona Cook M.D. on 02/22/2022 at 15:11 Approved by: Jona Cook M.D. on 02/22/2022 at 15:14 Normal [facility]ASK[facility] BALBUENA ([id number]) 1980 F Date Time Provider Department 12/13/21 DAYNA GILES During your visit today, we recorded the following information about you: Dayna Giles RN 12/13/2021 11:07 AM Signed Received call from pt stating Dr Rodriguez told her to contact Dr Leon to see if he would write her a script for a prophylactic antibiotic or antiviral d/t her low WBC of 1.3 and her being around young children. NELSON: Thoughts? GILL Levine MD 12/13/2021 11:57 AM Signed I would not recommend abx and she can come and see me and or Eunice to discuss. Dayna Giles RN 12/13/2021 12:00 PM Signed Informed pt of Dr Leon's response. Pt verbalized understanding and denies need for appt at this time. Dayna Giles RN Allergies As of Date: 12/13/2021 Noted Allergy Reaction AMOXICILLIN 04/17/2017 2 - Rash AVELOX (MOXIFLOXACIN HCL) 06/29/2007 2 - Rash CEPHALEXIN 04/17/2017 2 - Rash CIPROFLOXACIN 04/17/2017 14 - Other: See Comments Comments: can't breath CLINDAMYCIN 07/18/2017 6 - Diarrhea HEPARIN 16 - Unknown HEPARIN (BOVINE) 06/29/2007 LATEX 04/17/2017 2 - Rash LEVAQUIN (LEVOFLOXACIN) 06/29/2007 10 - Anaphylaxis Date Reviewed: 07/30/2021 Reviewed by: Eunice Mtz PA-C - Fully Assessed Reason for Visit: Medication Question [3578] Prescriptions as of 12/13/2021 - hydrOXYchloroQUINE (PLAQUENIL) 200 mg tablet - pantoprazole DR (PROTONIX) 40 mg tablet - MULTI-VITAMIN ORAL Take by mouth. - mv-mn/iron/folic acid/herb 190 (VITAMIN D3 COMPLETE ORAL) Take by mouth once daily. - BIOTIN ORAL Take 500 mg by mouth once daily. - ferrous sulfate (IRON) 325 mg (65 mg iron) tablet Take 325 mg by mouth three times a week. - ELIQUIS 2.5 mg tab tab(s) TAKE 1 TABLET BY MOUTH TWICE A DAY - diphenhydrAMINE (BENADRYL) 25 mg capsule Take 25 mg by mouth every 6 hours as needed. - albuterol (PROVENTIL) 2.5 mg /3 mL (0.083 %) nebulizer solution INHALE 1 VIAL VIA NEBULIZER EVERY 4 HOURS NEEDED - nystatin (MYCOSTATIN) 100,000 unit/mL suspension Take 100,000 Units by mouth as needed. - predniSONE (DELTASONE) 20 mg tablet Take 20 mg by mouth as needed. Problem List As Of Date 12/13/2021 Noted Resolved NEUTROPENIA NOS [D70.9] 06/29/2007 Encounter Status:Closed by DAYNA GILES on 12/13/21 Normal [facility] Anti-dsDNA(DBL)Abon 12-10-19 22 Anti-dsDNA(DBL)Ab 1 Normal 0-9 [facility] Comment on above: Order Comment: Name Collection Type:: Clean-Voided Midstream Result Comment: Nega tive <5 Equivocal 5 - 9 Positive >9 Performed at: [facility] [id number] [employer]: John Jauregui PhD, Phone: [phone] PERFORMED BY: [place] [address] PATHOLOGIST [employer]AP [employer]NER [place] RIVERA M.D. Performed By: #### C 4, CH50, C3 #### [facility] , #### ADDONUAPLUS #### [address] C-Reactive Proteinon 022 C-Reactive Protein 0.6 mg/dL Normal 0.0-1.0 [facility] Comment on above: Order Comment: Name Collection Type:: Clean-Voided Midstream Result Comment: PERF ORMED BY: [place] [address] PATHOLOGIST [employer] [place]IVER[place] M.D. Performed By: #### C 4, CH50, C3 #### [facility] , #### ADDONUAPLUS #### [address] Complement C3on 12-09-2021 Complement C3 125 mg/dL Normal 82-167 [facility] Comment on above: Result Comment: Perf ormed at: [facility] [id number] [employer]: John Jauregui PhD, Phone: [phone] Performed By: #### C 4, CH50, C3 #### [facility] , #### ADDONUAPLUS #### [address] Complement C4on 12-09-2021 Complement C4 17 mg/dL Normal 12-38 [facility] Comment on above: Performed By: #### C 4, CH50, C3 #### [facility] , #### ADDONUAPLUS #### [address] Complement Total (CH50)on Complement Total (CH50) >60 Normal >41 [facility] Comment on above: Result Comment: Age Male Female 1 - 30 days Not Estab. Not Estab. 31 days - 6 months >32 >20 7 months - 17 years >39 >39 >17 years >41 >41 NOTE: The adult ( >17 years ) reference interval range is used to flag abnormals on this report. If the patient is 17 years old or younger, use the table above to determine out of range values. Performed at: [facility] [id number] [employer]: John Jauregui PhD, Phone: [phone] PERFORMED BY: [place] [address] PATHOLOGIST [employer] [place]IVER[place] M.D. Performed By: #### C 4, CH50, C3 #### [facility] , #### ADDONUAPLUS #### [address] Creatinineon 12-09-2021 Creatinine [Mass/Vol] 0.94 mg/dL Normal 0.44-1.03 [facility] Comment on above: Order Comment: BLOOD SMEAR Performed By: #### H APT, CREAT, FE and TIBC, SCAN CBC, ESR, LDH, CRP, RETIC, EVAN #### [facility] [address] [place] [address] #### ADNA #### [facility] , Estimated GFR ( Nesha > 60 Normal [facility] Comment on above: Order Comment: BLOOD SMEAR Result Comment: GFR estimated reference range: According to KDOQI guidelines, <60 ml/min/1.73m2 is sufficient to diagnose a patient with chronic kidney disease. Performed By: #### H APT, CREAT, FE and TIBC, SCAN CBC, ESR, LDH, CRP, RETIC, EVAN #### [facility] [address] [place] [address] #### ADNA #### [facility] , Estimated GFR (Non- Am > 60 Normal [facility] Comment on above: Order Comment: BLOOD SMEAR Performed By: #### H APT, CREAT, FE and TIBC, SCAN CBC, ESR, LDH, CRP, RETIC, EVAN #### [facility] [address] [place] [address] [place] #### ADNA #### [facility] , Dipstick and Microscopicon 0 12-09-2021 Appearance (U) Clear Normal Clear [facility] Comment on above: Order Comment: Name Collection Type:: Clean-Voided Midstream Performed By: #### C 4, CH50, C3 #### [facility] , #### ADDONUAPLUS #### [place] [address] [place] Bacteria,Urine None Seen Normal None Seen [facility] Comment on above: Order Comment: Name Collection Type:: Clean-Voided Midstream Performed By: #### C 4, CH50, C3 #### [facility] , #### ADDONUAPLUS #### [address] Bilirubin,Urine Negative Normal Negative [facility] Comment on above: Order Comment: Name Collection Type:: Clean-Voided Midstream Performed By: #### C 4, CH50, C3 #### [facility] , #### ADDONUAPLUS #### [facility] [address] [place] [address] [place] Color (U) Yellow Normal Yellow [facility] Comment on above: Order Comment: Name Collection Type:: Clean-Voided Midstream Performed By: #### C 4, CH50, C3 #### [facility] , #### ADDONUAPLUS #### [facility] [address] [place] [address] [place] Glucose Ql (U) Normal Normal Normal [facility] Comment on above: Order Comment: Name Collection Type:: Clean-Voided Midstream Performed By: #### C 4, CH50, C3 #### [facility] , #### ADDONUAPLUS #### [address] Hyaline Casts,Urine 0-8 Normal 0-8 [facility] Comment on above: Order Comment: Name Collection Type:: Clean-Voided Midstream Result Comment: PERF ORMED BY: [place] [address] PATHOLOGIST [employer] [place]IVER[place] M.D. Performed By: #### C 4, CH50, C3 #### [facility] , #### ADDONUAPLUS #### [address] Ketones Ql (U) Negative Normal Negative [facility] Comment on above: Order Comment: Name Collection Type:: Clean-Voided Midstream Performed By: #### C 4, CH50, C3 #### [facility] , #### ADDONUAPLUS #### [address] Leukocyte esterase Test strip Ql (U) Negative Normal Negative [facility] Comment on above: Order Comment: Name Collection Type:: Clean-Voided Midstream Performed By: #### C 4, CH50, C3 #### [facility] , #### ADDONUAPLUS #### [place] [address] [place] Nitrite,Urine Negative Normal Negative [facility] Comment on above: Order Comment: Name Collection Type:: Clean-Voided Midstream Performed By: #### C 4, CH50, C3 #### [facility] , #### ADDONUAPLUS #### [address] Occult Blood,Urine 3+ High Negative [facility] Comment on above: Order Comment: Name Collection Type:: Clean-Voided Midstream Performed By: #### C 4, CH50, C3 #### [facility] , #### ADDONUAPLUS #### [facility] [address] [place] [address] pH (U) 6.0 [pH] Normal 5.0-9.0 [facility] Comment on above: Order Comment: Name Collection Type:: Clean-Voided Midstream Performed By: #### C 4, CH50, C3 #### [facility] , #### ADDONUAPLUS #### [address] Protein,Urine Trace High Negative [facility] Comment on above: Order Comment: Name Collection Type:: Clean-Voided Midstream Performed By: #### C 4, CH50, C3 #### [facility] , #### ADDONUAPLUS #### [facility] [address] [place] [address] RBC,Urine 20-49 High 0-4 [facility] Comment on above: Order Comment: Name Collection Type:: Clean-Voided Midstream Performed By: #### C 4, CH50, C3 #### [facility] , #### ADDONUAPLUS #### [facility] [address] [place] [address] [place] Specificy [place],Urine 1.025 Normal 1.001-1.030 [facility] Comment on above: Order Comment: Name Collection Type:: Clean-Voided Midstream Performed By: #### C 4, CH50, C3 #### [facility] , #### ADDONUAPLUS #### [facility] [address] [place] [address] Squamous Epithelial Cell,Urine 5-9 High 0-2 [facility] Comment on above: Order Comment: Name Collection Type:: Clean-Voided Midstream Performed By: #### C 4, CH50, C3 #### [facility] , #### ADDONUAPLUS #### [address] Urobilinogen,Urine Normal Normal Normal [facility] Comment on above: Order Comment: Name Collection Type:: Clean-Voided Midstream Performed By: #### C 4, CH50, C3 #### [facility] , #### ADDONUAPLUS #### [address] WBC,Urine 3-4 Normal 0-4 [facility] Comment on above: Order Comment: Name Collection Type:: Clean-Voided Midstream Performed By: #### C 4, CH50, C3 #### [facility] , #### ADDONUAPLUS #### [address] Direct [place] 12-09-2021 Polyspecific AHG Negative Normal [facility] Comment on above: Order Comment: Name Collection Type:: Clean-Voided Midstream Result Comment: PERF ORMED BY: [place] [address] PATHOLOGIST SCRAP METAL BURNER [place] RIVERA M.D. Erythrocyte Sedimentation Ra chrissy 12-09-2021 ESR (Bld) [Velocity] 21 mm/h High 0-19 [facility] Comment on above: Order Comment: Name Collection Type:: Clean-Voided Midstream Result Comment: PERF ORMED BY: [place] [address] PATHOLOGIST SCRAP METAL BURNER [place] RIVERA M.D. Performed By: #### C 4, CH50, C3 #### [facility] , #### ADDONUAPLUS #### [address] Ferritinon 12-09-2021 Ferritin [Mass/Vol] 6.6 ng/mL Low 11-306.8 [facility] Comment on above: Order Comment: BLOOD SMEAR Performed By: #### H APT, CREAT, FE and TIBC, SCAN CBC, ESR, LDH, CRP, RETIC, EVAN #### [facility] [address] [place] [address] #### ADNA #### [facility] , Haptoglobinon 12-09-2021 Haptoglobin 171 mg/dL Normal 37-246 [facility] Comment on above: Order Comment: BLOOD SMEAR Result Comment: PERF ORMED BY: [place] [address] PATHOLOGIST SCRAP MET[employer] BURNER [place] RIVERA M.D. Performed By: #### H APT, CREAT, FE and TIBC, SCAN CBC, ESR, LDH, CRP, RETIC, EVAN #### [address] #### ADNA #### [facility] , Iron and TIBC Profileon % Iron Saturation 9.0 % Low 20-50 [facility] Comment on above: Order Comment: BLOOD SMEAR Performed By: #### H APT, CREAT, FE and TIBC, SCAN CBC, ESR, LDH, CRP, RETIC, EVAN #### [facility] [address] [place] [address] #### ADNA #### [facility] , Iron [Mass/Vol] 40 ug/dL Normal 40-150 [facility] Comment on above: Order Comment: BLOOD SMEAR Performed By: #### H APT, CREAT, FE and TIBC, SCAN CBC, ESR, LDH, CRP, RETIC, EVAN #### [facility] [address] [place] [address] [place] #### ADNA #### [facility] , Total Iron Binding Capacity 435 ug/dL Normal 255-450 [facility] Comment on above: Order Comment: BLOOD SMEAR Performed By: #### H APT, CREAT, FE and TIBC, SCAN CBC, ESR, LDH, CRP, RETIC, EVAN #### [address] #### ADNA #### [facility] , Transferrin [Mass/Vol] 311 mg/dL Normal 180-380 [facility] Comment on above: Order Comment: BLOOD SMEAR Performed By: #### H APT, CREAT, FE and TIBC, SCAN CBC, ESR, LDH, CRP, RETIC, EVAN #### [facility] [address] [place] [address] #### ADNA #### [facility] , LDH Lactate Dehydrogenaseon 12-09-2021 LDH Lactate Dehydrogenase 186 U/L Normal 45-190 [facility] Comment on above: Order Comment: BLOOD SMEAR Performed By: #### H APT, CREAT, FE and TIBC, SCAN CBC, ESR, LDH, CRP, RETIC, EVAN #### [address] #### ADNA #### [facility] , Reticulocyte Counton 022 Reticulocyte Number 0.046 10*6/uL Normal 0.024-0.084 [facility] Comment on above: Order Comment: Name Collection Type:: Clean-Voided Midstream Performed By: #### C 4, CH50, C3 #### [facility] , #### ADDONUAPLUS #### [address] Reticulocyte Percent 1.1 % Normal 0.5-1.5 [facility] Comment on above: Order Comment: Name Collection Type:: Clean-Voided Midstream Performed By: #### C 4, CH50, C3 #### [facility] , #### ADDONUAPLUS #### [address] Scan and CBCon 12-09-2021 Anisocytosis Ql (Bld) Slight Normal [facility] Comment on above: Order Comment: Name Collection Type:: Clean-Voided Midstream Performed By: #### C 4, CH50, C3 #### [facility] , #### ADDONUAPLUS #### [address] Basophils (Bld) [#/Vol] 0.0 10*3/uL Normal 0.0-0.2 [facility] Comment on above: Order Comment: Name Collection Type:: Clean-Voided Midstream Performed By: #### C 4, CH50, C3 #### [facility] , #### ADDONUAPLUS #### [address] Basophils/100 WBC (Bld) 1.2 % Normal . [facility] Comment on above: Order Comment: Name Collection Type:: Clean-Voided Midstream Performed By: #### C 4, CH50, C3 #### [facility] , #### ADDONUAPLUS #### [address] Eosinophils (Bld) [#/Vol] 0.0 10*3/uL Normal 0.0-0.45 [facility] Comment on above: Order Comment: Name Collection Type:: Clean-Voided Midstream Performed By: #### C 4, CH50, C3 #### [facility] , #### ADDONUAPLUS #### [address] Eosinophils/100 WBC (Bld) 3.8 % Normal . [facility] Comment on above: Order Comment: Name Collection Type:: Clean-Voided Midstream Performed By: #### C 4, CH50, C3 #### [facility] , #### ADDONUAPLUS #### [address] Erythrocyte distribution width (RBC) [Ratio] 14.5 % Normal 11.9-15.3 [facility] Comment on above: Order Comment: Name Collection Type:: Clean-Voided Midstream Performed By: #### C 4, CH50, C3 #### [facility] , #### ADDONUAPLUS #### [address] Hematocrit (Bld) [Volume fraction] 35.2 % Normal 34.0-46.4 [facility] Comment on above: Order Comment: Name Collection Type:: Clean-Voided Midstream Performed By: #### C 4, CH50, C3 #### [facility] , #### ADDONUAPLUS #### [address] Hemoglobin (Bld) [Mass/Vol] 11.6 g/dL Low 11.8-15.4 [facility] Comment on above: Order Comment: Name Collection Type:: Clean-Voided Midstream Performed By: #### C 4, CH50, C3 #### [facility] , #### ADDONUAPLUS #### [address] Lymphocytes (Bld) [#/Vol] 0.5 10*3/uL Low 1.00-4.8 [facility] Comment on above: Order Comment: Name Collection Type:: Clean-Voided Midstream Performed By: #### C 4, CH50, C3 #### [facility] , #### ADDONUAPLUS #### [address] Lymphocytes/100 WBC (Bld) 37.6 % Normal . [facility] Comment on above: Order Comment: Name Collection Type:: Clean-Voided Midstream Performed By: #### C 4, CH50, C3 #### [facility] , #### ADDONUAPLUS #### [address] MCH (RBC) [Entitic mass] 28.5 pg Normal 24.7-34.3 [facility] Comment on above: Order Comment: Name Collection Type:: Clean-Voided Midstream Performed By: #### C 4, CH50, C3 #### [facility] , #### ADDONUAPLUS #### [address] MCV (RBC) [Entitic vol] 86.3 fL Normal 80-100 [facility] Comment on above: Order Comment: Name Collection Type:: Clean-Voided Midstream Performed By: #### C 4, CH50, C3 #### [facility] , #### ADDONUAPLUS #### [address] Mean Corpuscular HGB Conc 33.0 g/dL Normal 32.0-35.0 [facility] Comment on above: Order Comment: Name Collection Type:: Clean-Voided Midstream Performed By: #### C 4, CH50, C3 #### [facility] , #### ADDONUAPLUS #### [address] Monocytes (Bld) [#/Vol] 0.1 10*3/uL Normal 0.0-0.8 [facility] Comment on above: Order Comment: Name Collection Type:: Clean-Voided Midstream Performed By: #### C 4, CH50, C3 #### [facility] , #### ADDONUAPLUS #### [address] Monocytes/100 WBC (Bld) 8.1 % Normal . [facility] Comment on above: Order Comment: Name Collection Type:: Clean-Voided Midstream Performed By: #### C 4, CH50, C3 #### [facility] , #### ADDONUAPLUS #### [address] Neutrophils (Bld) [#/Vol] 0.6 10*3/uL Low 1.8-7.7 [facility] Comment on above: Order Comment: Name Collection Type:: Clean-Voided Midstream Performed By: #### C 4, CH50, C3 #### [facility] , #### ADDONUAPLUS #### [address] Neutrophils/100 WBC (Bld) 49.3 % Normal . [facility] Comment on above: Order Comment: Name Collection Type:: Clean-Voided Midstream Performed By: #### C 4, CH50, C3 #### [facility] , #### ADDONUAPLUS #### [address] Nucleated RBC/100 WBC (Bld) [Ratio] 0.6 % High 0-0.5 [facility] Comment on above: Order Comment: Name Collection Type:: Clean-Voided Midstream Performed By: #### C 4, CH50, C3 #### [facility] , #### ADDONUAPLUS #### [address] Ovalocytes Slight Normal [facility] Comment on above: Order Comment: Name Collection Type:: Clean-Voided Midstream Performed By: #### C 4, CH50, C3 #### [facility] , #### ADDONUAPLUS #### [address] Platelet Estimate Decreased Low Normal [facility] Comment on above: Order Comment: Name Collection Type:: Clean-Voided Midstream Performed By: #### C 4, CH50, C3 #### [facility] , #### ADDONUAPLUS #### [address] Platelet mean volume (Bld) [Entitic vol] 9.4 fL Normal 6.3-10.7 [facility] Comment on above: Order Comment: Name Collection Type:: Clean-Voided Midstream Performed By: #### C 4, CH50, C3 #### [facility] , #### ADDONUAPLUS #### [facility] [address] [place] [address] Platelet Morphology Normal Normal Normal [facility] Comment on above: Order Comment: Name Collection Type:: Clean-Voided Midstream Performed By: #### C 4, CH50, C3 #### [facility] , #### ADDONUAPLUS #### [place] [address] [place] Platelets (Bld) [#/Vol] 149 10*3/uL Low 150-450 [facility] Comment on above: Order Comment: Name Collection Type:: Clean-Voided Midstream Performed By: #### C 4, CH50, C3 #### [facility] , #### ADDONUAPLUS #### [address] Poikilocytosis Slight Normal [facility] Comment on above: Order Comment: Name Collection Type:: Clean-Voided Midstream Performed By: #### C 4, CH50, C3 #### [facility] , #### ADDONUAPLUS #### [place] [address] [place] RBC (Bld) [#/Vol] 4.08 10*6/uL Normal 3.60-5.00 [facility] Comment on above: Order Comment: Name Collection Type:: Clean-Voided Midstream Performed By: #### C 4, CH50, C3 #### [facility] , #### ADDONUAPLUS #### [place] [address] [place] WBC (Bld) [#/Vol] 1.3 10*3/uL Low 4.5-11.0 [facility] Comment on above: Order Comment: Name Collection Type:: Clean-Voided Midstream Performed By: #### C 4, CH50, C3 #### [facility] , #### ADDONUAPLUS #### [address] [place] [address] [facility] CNOVSPon 07-30-2021 CNOVSP Visit (SP) Office (HEMASA) SASKIA BALBUENA ([id number]) 1980 F Date Time Provider Department 07/30/21 1:30 PM EUNICE MTZ During your visit today, we recorded the following information about you: Temperature Pulse Respiration Blood pressure 97.9 degrees 71/minute 16/minute 152/89 Weight Height 73.3 kg 1.6 m Eunice Mtz PA-C 07/30/2021 2:22 PM Signed CHIEF COMPLAINT: DVT HISTORY OF PRESENT ILLNESS: Saskia Balbuena is a 40 year old female who presents for follow up of above. History as noted below. Initial blood clot 2003- left leg- calf to thigh- treated for six months- coumadin. Circumstances- was on control, had also foot fracture- preceded clot and was non weight bearing at the time, was in a walking boot, less ambulatory and clot diagnosed after a car ride from [place]. NO issues after six months. Repeat ultrasound negative at three months and at six months. 02/2017 diagnosed with superficial phlebitis, resolved, went to [place] 03/2017- drove and upon arrival in [place]- noted leg swelling was diagnosed with DVT in [place]. Now on eliquis alf. Interval History: Since her visit 2 years ago she was found to have an positive, speckled NICO and was diagnosed with SLE and now on Plaquenil and occasional Prednisone. She now has developed a rash on her left lower leg. She is scheduled to see dermatology next week. It is felt it could be fungal versus lupus rash. She is also having acid reflux and is scheduled to see GI. She denies any repeat infections. She still has chronic swelling in the left leg off and on. Overall she is doing well. Denies any bleeding, cough, shortness of breath, fever, chills or night sweats. PAST MEDICAL HISTORY Diagnosis Date - Acute DVT (deep venous thrombosis) (HCC) - Bronchiectasis - Cystic fibrosis - Embolism and thrombosis of unspecified site ankle fx 2003 - Neutropenia, unspecified (HCC) - Osteoporosis, unspecified - Pulmonary embolism (HCC) - Seborrheic dermatitis, unspecified lupus PAST SURGICAL HISTORY Procedure Laterality Date - LIGATE FALLOPIAN TUBE - REMOVE TONSILS/ADENOIDS,<12 Y/O Review of Social History includes: Social History Tobacco Use - Smoking status: Never Smoker - Smokeless tobacco: Never Used - Tobacco comment: PARENTS SMOKE Substance Use Topics - Alcohol use: No - Drug use: No FAMILY HISTORY Problem Relation Age of Onset - Lipids Mother - Lipids Father Current Outpatient Medications Medication Sig - hydrOXYchloroQUINE (PLAQUENIL) 200 mg tablet - pantoprazole DR (PROTONIX) 40 mg tablet - MULTI-VITAMIN ORAL Take by mouth. - mv-mn/iron/folic acid/herb 190 (VITAMIN D3 COMPLETE ORAL) Take by mouth once daily. - BIOTIN ORAL Take 500 mg by mouth once daily. - ferrous sulfate (IRON) 325 mg (65 mg iron) tablet Take 325 mg by mouth three times a week. - ELIQUIS 2.5 mg tab tab(s) TAKE 1 TABLET BY MOUTH TWICE A DAY - diphenhydrAMINE (BENADRYL) 25 mg capsule Take 25 mg by mouth every 6 hours as needed. - albuterol (PROVENTIL) 2.5 mg /3 mL (0.083 %) nebulizer solution INHALE 1 VIAL VIA NEBULIZER EVERY 4 HOURS NEEDED - nystatin (MYCOSTATIN) 100,000 unit/mL suspension Take 100,000 Units by mouth as needed. - predniSONE (DELTASONE) 20 mg tablet Take 20 mg by mouth as needed. No current facility-administered medications for this visit. REVIEW OF SYSTEMS: Constitutional: No fever, night sweats or unwanted weight loss. Head and neck: No recent epistaxis Respiratory: Denies dyspnea, cough or hemoptysis Cardiovascular: No leg swelling, chest pain or bleeding GI: No melena or hematochezia. Skin: Rash to left lower leg Neurologic: No focal weakness or sensory changes. Psychiatric: Normal affect. Hematopoietic: No easy bruising or enlarged lymphadenopathy. : No frequency or dysuria. PHYSICAL EXAMINATION: BP 152/89 Pulse 71 Temp 36.6 ?C (97.9 ?F) (Temporal) Resp 16 Ht 160 cm (5' 2.99 ) Wt 73.3 kg (161 lb 11.2 oz) SpO2 99% BMI 28.65 kg/m? General appearance: well appearing, alert, in no acute distress, well-hydrated, well nourished Skin: dry, circular rash with demarcated edges, similar to fungal rash Lungs: clear to auscultation, no wheezing or rhonchi Heart: Negative. RRR without murmur, gallop, or rubs. No ectopy. Abdomen: Normal abdominal exam, Abdomen soft, non-tender. Extremities: Extremities normal. No deformities, edema, or skin discoloration. Musculoskeletal: No joint swelling, deformity, or tenderness. Psyche: normal mood and affect LABS: Hemoglobin (g/dL) Date Value 07/30/2021 12.1 Hematocrit (%) Date Value 07/30/2021 36.7 WBC (k/uL) Date Value 07/30/2021 1.78 Platelet Count (k/uL) Date Value 07/30/2021 147 ASSESSMENT/PLAN: Saskia Balbuena is a 37 year old female with history of DVT x 2. First instance was clearly (more content not included)... Normal [facility] Comp Metabolic Panelon 07-30 Albumin [Mass/Vol] 4.3 g/dL Normal 3.9-4.9 [facility] ALP [Catalytic activity/Vol] 72 U/L Normal 34-123 [facility] ALT [Catalytic activity/Vol] 17 U/L Normal 7-38 [facility] Anion gap [Moles/Vol] 10 mmol/L Normal 9-18 [facility] AST [Catalytic activity/Vol] 25 U/L Normal 13-35 [facility] Bilirubin [Mass/Vol] 0.4 mg/dL Normal 0.2-1.3 [facility] Calcium [Mass/Vol] 9.4 mg/dL Normal 8.5-10.2 [facility] Chloride [Moles/Vol] 106 mmol/L High 97-105 [facility] CO2 [Moles/Vol] 25 mmol/L Normal 22-30 [facility] Creatinine [Mass/Vol] 0.82 mg/dL Normal 0.58-0.96 [facility] eGFR- Amer. >60 Normal [facility] eGFR-All Other Races >60 Normal [facility] Comment on above: Result Comment: eGFR (Estimated GFR) Units of measure: mL/min/1.73 meters squared eGFR is derived from the reexpressed MDRD Study equation using the following parameters: serum creatinine, age, gender and race. The creatinine assay has been calibrated to be traceable to IDMS. An eGFR <60 mL/min/1.73m2 for >3 months is consistent with chronic kidney disease. Refer to KDOQI guidelines for clinical interpretation. In patients with unstable renal function, e.g. those with acute kidney injury, the eGFR may not accurately reflect actual GFR. Glucose [Mass/Vol] 101 mg/dL High 74-99 [facility] Comment on above: Result Comment: The [place] Diabetes Association (ADA) provides guidance for cutoff values for fasting glucose and random glucose. The ADA defines fasting as no caloric intake for at least 8 hours. Fasting plasma glucose results between 100 to 125 mg/dL indicate increased risk for diabetes (prediabetes). Fasting plasma glucose results greater than or equal to 126 mg/dL meet the criteria for diagnosis of diabetes. In the absence of unequivocal hyperglycemia, results should be confirmed by repeat testing. In a patient with classic symptoms of hyperglycemia or hyperglycemic crisis, random plasma glucose results greater than or equal to 200 mg/dL meet the criteria for diagnosis of diabetes. Reference: Standards of Medical Care in Diabetes 2016, [place] [employer]. Diabetes Care. 2016.39(Suppl 1). Potassium [Moles/Vol] 4.1 mmol/L Normal 3.7-5.1 [facility] Protein [Mass/Vol] 7.3 g/dL Normal 6.3-8.0 [facility] Sodium [Moles/Vol] 141 mmol/L Normal 136-144 [facility] Urea nitrogen [Mass/Vol] 14 mg/dL Normal 7-21 [facility] Remote CBCDIF (for [facility] use o nly)on 07-30-2021 Abs Baso <0.03 Normal <0.11 [facility] Abs [place] 0.18 k/uL Normal <0.87 [facility] Abs Neut 0.87 k/uL Low 1.45-7.50 [facility] Absolute nRBC <0.01 Normal <0.01 [facility] Basophils/100 WBC (Bld) 1.1 % Normal [facility] DTYPE Auto Diff Normal [facility] Eosinophils (Bld) [#/Vol] 0.08 10*3/uL Normal <0.46 [facility] Eosinophils/100 WBC (Bld) 4.5 % Normal [facility] Erythrocyte distribution width (RBC) [Ratio] 13.0 % Normal 11.5-15.0 [facility] Hematocrit (Bld) [Volume fraction] 36.7 % Normal 36.0-46.0 [facility] Hemoglobin (Bld) [Mass/Vol] 12.1 g/dL Normal 11.5-15.5 [facility] Lymphocytes (Bld) [#/Vol] 0.62 10*3/uL Low 1.00-4.00 [facility] Lymphocytes/100 WBC (Bld) 34.8 % Normal [facility] MCH 29.2 pG Normal 26.0-34.0 [facility] MCHC (RBC) [Mass/Vol] 33.0 g/dL Normal 30.5-36.0 [facility] MCV (RBC) [Entitic vol] 88.6 fL Normal 80.0-100.0 [facility] Monocytes/100 WBC (Bld) 10.1 % Normal [facility] Neutrophils/100 WBC (Bld) 49.5 % Normal [facility] NRBCs 0.0 /100 WBC Normal 0 [facility] Platelet mean volume (Bld) [Entitic vol] 10.5 fL Normal 9.0-12.7 [facility] Platelets (Bld) [#/Vol] 147 10*3/uL Low 150-400 [facility] RBC (Bld) [#/Vol] 4.14 10*6/uL Normal 3.90-5.20 [facility] WBC (Bld) [#/Vol] 1.78 10*3/uL Low 3.70-11.00 [facility] CNPLilia 07-27-2021 CNPN Telephone (HEMASA) SASKIA BALBUENA ([id number]) 1980 F Date Time Provider Department 07/27/21 EUNICE MTZ During your visit today, we recorded the following information about you: Laya Vanessa MA 07/27/2021 12:58 PM Signed Please sign pending lab orders for 07/30/21. Thanks, Laya Vanessa MA Allergies As of Date: 07/27/2021 Noted Allergy Reaction AMOXICILLIN 04/17/2017 2 - Rash AVELOX (MOXIFLOXACIN HCL) 06/29/2007 2 - Rash CEPHALEXIN 04/17/2017 2 - Rash CIPROFLOXACIN 04/17/2017 14 - Other: See Comments Comments: can't breath CLINDAMYCIN 07/18/2017 6 - Diarrhea HEPARIN 16 - Unknown HEPARIN (BOVINE) 06/29/2007 LATEX 04/17/2017 2 - Rash LEVAQUIN (LEVOFLOXACIN) 06/29/2007 10 - Anaphylaxis Date Reviewed: 07/27/2021 Reviewed by: Eunice Mtz PA-C - Fully Assessed Reason for Visit: Lab Orders [1688] Primary Visit Diagnosis:Other neutropenia (HCC) [D70.8] Order(s):CBC + DIFF (FOR [facility] USE) [SQRCBCDF] Order #: [id number] COMP METABOLIC PANEL [SQCMP] Order #: [id number] Prescriptions as of 07/29/2021 - ELIQUIS 2.5 mg tab tab(s) TAKE 1 TABLET BY MOUTH TWICE A DAY - diphenhydrAMINE (BENADRYL) 25 mg capsule Take 25 mg by mouth every 6 hours as needed. - albuterol (PROVENTIL) 2.5 mg /3 mL (0.083 %) nebulizer solution INHALE 1 VIAL VIA NEBULIZER EVERY 4 HOURS NEEDED - nystatin (MYCOSTATIN) 100,000 unit/mL suspension Take 100,000 Units by mouth as needed. - predniSONE (DELTASONE) 20 mg tablet Take 20 mg by mouth as needed. Problem List As Of Date 07/27/2021 Noted Resolved NEUTROPENIA NOS [D70.9] 06/29/2007 Encounter Status:Closed by LAYA VANESSA on 07/29/21 Normal [facility] Consent for COVID Vaccineon 01-09-2021 SARS-CoV-2 (COVID-19) RNA CORINE+probe Ql (Unsp spec) [id number] Normal [facility] Scan and CBCon 12-30-2020 Anisocytosis Ql (Bld) Slight Normal [facility] Comment on above: Performed By: #### S CAN CBC #### [facility] [address] [place] [address] [place] Basophils (Bld) [#/Vol] 0.0 10*3/uL Normal 0.0-0.2 [facility] Comment on above: Performed By: #### S CAN CBC #### [facility] [address] [place] [address] Basophils/100 WBC (Bld) 1.0 % Normal . [facility] Comment on above: Performed By: #### S CAN CBC #### [facility] [address] [place] [address] Eosinophils (Bld) [#/Vol] 0.1 10*3/uL Normal 0.0-0.45 [facility] Comment on above: Performed By: #### S CAN CBC #### [facility] [address] [place] [address] [place] Eosinophils/100 WBC (Bld) 3.7 % Normal . [facility] Comment on above: Performed By: #### S CAN CBC #### [facility] [address] [place] [address] Erythrocyte distribution width (RBC) [Ratio] 16.6 % High 11.9-15.3 [facility] Comment on above: Performed By: #### S CAN CBC #### [facility] [address] [place] [address] Hematocrit (Bld) [Volume fraction] 31.5 % Low 34.0-46.4 [facility] Comment on above: Performed By: #### S CAN CBC #### [address] Hemoglobin (Bld) [Mass/Vol] 10.4 g/dL Low 11.8-15.4 [facility] Comment on above: Performed By: #### S CAN CBC #### [address] Large Platelets Slight Normal [facility] Comment on above: Result Comment: PERF ORMED BY: [place] [address] PATHOLOGIST SCRAP METAL BURNER [place] RIVERA M.D. Performed By: #### S CAN CBC #### [address] Lymphocytes (Bld) [#/Vol] 0.6 10*3/uL Low 1.00-4.8 [facility] Comment on above: Performed By: #### S CAN CBC #### [address] Lymphocytes/100 WBC (Bld) 35.0 % Normal . [facility] Comment on above: Performed By: #### S CAN CBC #### [address] MCH (RBC) [Entitic mass] 27.2 pg Normal 24.7-34.3 [facility] Comment on above: Performed By: #### S CAN CBC #### [address] MCV (RBC) [Entitic vol] 82.0 fL Normal 80-100 [facility] Comment on above: Performed By: #### S CAN CBC #### [address] Mean Corpuscular HGB Conc 33.1 g/dL Normal 32.0-35.0 [facility] Comment on above: Performed By: #### S CAN CBC #### [address] Monocytes (Bld) [#/Vol] 0.1 10*3/uL Normal 0.0-0.8 [facility] Comment on above: Performed By: #### S CAN CBC #### [address] Monocytes/100 WBC (Bld) 7.2 % Normal . [facility] Comment on above: Performed By: #### S CAN CBC #### [facility] [address] [place] [address] Neutrophils (Bld) [#/Vol] 0.9 10*3/uL Low 1.8-7.7 [facility] Comment on above: Performed By: #### S CAN CBC #### [address] Neutrophils/100 WBC (Bld) 53.1 % Normal . [facility] Comment on above: Performed By: #### S CAN CBC #### [facility] [address] [place] [address] [place] Nucleated RBC/100 WBC (Bld) [Ratio] 1.0 % High 0-0.5 [facility] Comment on above: Performed By: #### S CAN CBC #### [facility] [address] [place] [address] Platelet Estimate Normal Normal Normal [facility] Comment on above: Performed By: #### S CAN CBC #### [address] Platelet mean volume (Bld) [Entitic vol] 9.7 fL Normal 6.3-10.7 [facility] Comment on above: Performed By: #### S CAN CBC #### [facility] [address] [place] [address] [place] Platelets (Bld) [#/Vol] 163 10*3/uL Normal 150-450 [facility] Comment on above: Performed By: #### S CAN CBC #### [facility] [address] [place] [address] [place] RBC (Bld) [#/Vol] 3.84 10*6/uL Normal 3.60-5.00 [facility] Comment on above: Performed By: #### S CAN CBC #### [facility] [address] [id number] [facility] WBC (Bld) [#/Vol] 1.8 10*3/uL Low 4.5-11.0 [facility] Comment on above: Performed By: #### S CAN CBC #### [facility] [address] [id number] [facility] Coding Summary.on 12-16-2020 Coding Summary. CODING DATE: 12/16/2020 FINAL [facility] STATUS: PAYOR: Commercial Insurance APC DESCRIPTION [employer] - Level 1B ($11-$20) ADMIT DX: REASON FOR VISIT DX: Z23 Encounter for immunization FINAL DX: PRINCIPAL: Z23 Encounter for immunization SECONDARY: PYMT PROC APC STAT DESCRIPTION DOCTOR NAME DATE NOTE: The code number assigned matches the documented diagnosis and / or procedure in the patient's chart. However, the narrative phrase printed from the coding software may appear abbreviated, or result in slightly different terminology. Coded By: Kelly Saini Date Saved: 12/16/2020 01:54 pm [facility] Consent for COVID Vaccineon 12-15-2020 SARS-CoV-2 (COVID-19) RNA CORINE+probe Ql (Unsp spec) [id number]. [id number]:127 [facility] Consent for Treatmenton Consent for Treatment [id number]. 00CD:127 [facility] Vital Signs Date Time Vital Sign Value Performing Clinician Facility 07-14-2025 10:13040 Diastolic blood pressure 95 mm[Hg] Suzy Muhammad MD Work Phone: [facility] 07-14-2025 10:13040 Heart rate 81 /min Suzy Muhammad MD Work Phone: [facility] 07-14-2025 10:13040 Systolic blood pressure 139 mm[Hg] Suzy Muhammad MD Work Phone: [facility] 07-14-2025 10:05-0400 Body height 160.02 cm Suzy Muhammad MD Work Phone: [facility] 07-14-2025 10:05-0400 Body mass index (BMI) [Ratio] 31.2 kg/m2 Suzy Muhammad MD Work Phone: [facility] 07-14-2025 10:05-0400 Body weight 80 kg Suzy Muhammad MD Work Phone: [facility] 06-19-2025 10:54-0400 Body height 160.02 cm Suzy Muhammad MD Work Phone: [facility] 06-19-2025 10:54-0400 Body mass index (BMI) [Ratio] 30.9 kg/m2 Suzy Muhammad MD Work Phone: [facility] 06-19-2025 10:54-0400 Body weight 79.37 kg Suzy Muhammad MD Work Phone: [facility] 06-02-2025 11:42-0400 Body height 162.6 cm Cynthia Montgomery PA Work Phone: [facility] 06-02-2025 11:42-0400 Body mass index (BMI) [Ratio] 30.04 kg/m2 Cynthia Montgomery PA Work Phone: [facility] 06-02-2025 11:42-0400 Body weight 79.38 kg Cynthia Lennie PA Work Phone: [facility] 06-02-2025 11:42-0400 Diastolic blood pressure 74 mm[Hg] Cynthia Lennie PA Work Phone: [facility] 06-02-2025 11:42-0400 Systolic blood pressure 122 mm[Hg] Cynthia Lennie PA Work Phone: [facility] 04-01-2025 19:56-0400 Diastolic blood pressure 98 mm[Hg] Suzy Muhammad MD Work Phone: [facility] 04-01-2025 19:56-0400 Systolic blood pressure 160 mm[Hg] Suzy Muhammad MD Work Phone: [facility] 04-01-2025 16:15-0400 Body height 160.02 cm Suzy Muhammad MD Work Phone: [facility] 04-01-2025 16:15-0400 Body mass index (BMI) [Ratio] 30.4 kg/m2 Suzy Muhammad MD Work Phone: [facility] 04-01-2025 16:15-0400 Body temperature 98.1 [degF] Suzy Muhammad MD Work Phone: [facility] 04-01-2025 16:15-0400 Body weight 77.79 kg Suzy Muhammad MD Work Phone: [facility] 04-01-2025 16:15-0400 Heart rate 79 /min Suzy Muhammad MD Work Phone: [facility] 04-01-2025 16:15-0400 Respiratory rate 16 /min Suzy Muhammad MD Work Phone: [facility] 04-01-2025 16:15-0400 SaO2% (BldA) [Mass fraction] 98 % Suzy Muhammad MD Work Phone: [facility] 03-30-2025 10:32-0400 Body height 160.02 cm Suzy Muhammad MD Work Phone: [facility] 03-30-2025 10:32-0400 Body mass index (BMI) [Ratio] 30.3 kg/m2 Suzy Muhammad MD Work Phone: [facility] 03-30-2025 10:32-0400 Body temperature 97.8 [degF] Suzy Muhammad MD Work Phone: [facility] 03-30-2025 10:32-0400 Body weight 77.73 kg Suzy Muhammad MD Work Phone: [facility] 03-30-2025 10:32-0400 Diastolic blood pressure 86 mm[Hg] Suzy Muhammad MD Work Phone: [facility] 03-30-2025 10:32-0400 Heart rate 100 /min Suzy Muhammad MD Work Phone: [facility] 03-30-2025 10:32-0400 Respiratory rate 20 /min Suzy Muhammad MD Work Phone: [facility] 03-30-2025 10:32-0400 SaO2% (BldA) [Mass fraction] 98 % Suzy Muhammad MD Work Phone: [facility] 03-30-2025 10:32-0400 Systolic blood pressure 140 mm[Hg] Suzy Muhammad MD Work Phone: [facility] 11-06-2024 09:07-0500 Body height 160.02 cm [facility] 11-06-2024 09:07-0500 Body mass index (BMI) [Ratio] 30.4 kg/m2 [facility] 11-06-2024 09:07-0500 Body weight 78.01 kg [facility] 11-06-2024 09:07-0500 Diastolic blood pressure 92 mm[Hg] [facility] 11-06-2024 09:07-0500 Heart rate 78 /min [facility] 11-06-2024 09:07-0500 Systolic blood pressure 137 mm[Hg] [facility] 08-19-2024 09:54-0500 Body height 160.02 cm [facility] 08-19-2024 09:54-0500 Body mass index (BMI) [Ratio] 29.5 kg/m2 [facility] 08-19-2024 09:54-0500 Body weight 75.74 kg [facility] 08-19-2024 09:54-0500 Diastolic blood pressure 95 mm[Hg] [facility] 08-19-2024 09:54-0500 Heart rate 78 /min [facility] 08-19-2024 09:54-0500 Systolic blood pressure 138 mm[Hg] [facility] 07-18-2024 10:39-0400 Body height 160.02 cm [facility] 07-18-2024 10:39-0400 Body mass index (BMI) [Ratio] 29.6 kg/m2 [facility] 07-18-2024 10:39-0400 Body weight 75.86 kg [facility] 07-18-2024 10:39-0400 Diastolic blood pressure 82 mm[Hg] [facility] 07-18-2024 10:39-0400 Heart rate 84 /min [facility] 07-18-2024 10:39-0400 Respiratory rate 16 /min [facility] 07-18-2024 10:39-0400 SaO2% (BldA) [Mass fraction] 97 % [facility] 07-18-2024 10:39-0400 Systolic blood pressure 132 mm[Hg] [facility] 02-15-2024 12:25-0400 Body height 160.02 cm [facility] 02-15-2024 12:25-0400 Body mass index (BMI) [Ratio] 29.4 kg/m2 [facility] 02-15-2024 12:25-0400 Body weight 75.29 kg [facility] 01-19-2024 09:47-0400 Body height 160.02 cm [facility] 01-19-2024 09:47-0400 Body mass index (BMI) [Ratio] 30.3 kg/m2 [facility] 01-19-2024 09:47-0400 Body temperature 97.5 [degF] [facility] 01-19-2024 09:47-0400 Body weight 77.62 kg [facility] 01-19-2024 09:47-0400 Diastolic blood pressure 80 mm[Hg] [facility] 01-19-2024 09:47-0400 Heart rate 81 /min [facility] 01-19-2024 09:47-0400 Systolic blood pressure 145 mm[Hg] [facility] 12-07-2023 09:02-0500 Body height 160.02 cm [facility] 12-07-2023 09:02-0500 Body mass index (BMI) [Ratio] 29.4 kg/m2 [facility] 12-07-2023 09:02-0500 Body weight 75.29 kg [facility] 12-07-2023 09:02-0500 Diastolic blood pressure 90 mm[Hg] [facility] 12-07-2023 09:02-0500 Heart rate 96 /min [facility] 12-07-2023 09:02-0500 SaO2% (BldA) [Mass fraction] 98 % [facility] 12-07-2023 09:02-0500 Systolic blood pressure 142 mm[Hg] [facility] 10-11-2023 09:45-0500 Body height 160.02 cm Kelley Perez Other [employer] Other 10-11-2023 09:45-0500 Body mass index (BMI) [Ratio] 28.87 kg/m2 Kelley Perez Other [employer] Other 10-11-2023 09:45-0500 Body weight 73.94 kg Kelley Perez Other [employer] Other 10-11-2023 09:45-0500 Diastolic blood pressure 82 mm[Hg] Kelley Perez Other [employer] Other 10-11-2023 09:45-0500 SaO2% (BldA) [Mass fraction] 100 % Kelley Perez Other [employer] Other 10-11-2023 09:45-0500 Systolic blood pressure 110 mm[Hg] Kelley Perez Other [employer] Other 09-13-2023 14:00-0500 Body height 160.02 cm Kelley Perez Other [employer] Other 09-13-2023 14:00-0500 Body mass index (BMI) [Ratio] 29.4 kg/m2 Kelley Garciaherve Other [employer] Other 09-13-2023 14:00-0500 Body weight 75.3 kg Kelley Perez Other [employer] Other 09-13-2023 14:00-0500 Diastolic blood pressure 88 mm[Hg] Kelley Garciaherve Other [employer] Other 09-13-2023 14:00-0500 SaO2% (BldA) [Mass fraction] 100 % Kelley Garciaherve Other [employer] Other 09-13-2023 14:00-0500 Systolic blood pressure 132 mm[Hg] Kelley Grullonalysha Other [employer] Other 08-21-2023 09:00-0500 Body height 160.02 cm Suzy Muhammad Other [employer] Other 08-21-2023 09:00-0500 Body mass index (BMI) [Ratio] 28.94 kg/m2 Suzy Muhammad Other [employer] Other 08-21-2023 09:00-0500 Body weight 74.12 kg Suzy Muhammad Other [employer] Other 08-21-2023 09:00-0500 Diastolic blood pressure 90 mm[Hg] Suzy Muhammad Other [employer] Other 08-21-2023 09:00-0500 Systolic blood pressure 138 mm[Hg] Suzy Muhammad Other [employer] Other 12-08-2022 11:30-0500 Body height 160.02 cm Suzy Muhammad Other [employer] Other 12-08-2022 11:30-0500 Body mass index (BMI) [Ratio] 26.75 kg/m2 Suzy Muhammad Other [employer] Other 12-08-2022 11:30-0500 Body temperature 97.7 [degF] Suzy Muhammad Other [employer] Other 12-08-2022 11:30-0500 Body weight 68.49 kg Suzy Muhammad Other [employer] Other 12-08-2022 11:30-0500 Diastolic blood pressure 74 mm[Hg] Suzy Muhammad Other [employer] Other 12-08-2022 11:30-0500 SaO2% (BldA) [Mass fraction] 98 % Suzy Muhammad Other [employer] Other 12-08-2022 11:30-0500 Systolic blood pressure 122 mm[Hg] Suzy Muhammad Other [employer] Other 08-10-2021 16:00-0400 Body height 160.02 cm Valentin Hunt Other [employer] Other 08-10-2021 16:00-0400 Body mass index (BMI) [Ratio] 27.99 kg/m2 Valentin Hunt Other [employer] Other 08-10-2021 16:00-0400 Body weight 71.67 kg Valentin Hunt Other [employer] Other 08-10-2021 16:00-0400 Diastolic blood pressure 89 mm[Hg] Valentin Hunt Other [employer] [facility] [employer] Other 08-10-2021 16:00-0400 Systolic blood pressure 114 mm[Hg] Valentin Hunt Other [employer] [facility] [employer] Other Encounters Encounter Date Encounter Type Care Provider Facility Start: 07-14-2025 End: 07-14-2025 ambulatory Suzy Muhammad MD Work Phone: [facility] Work Phone: Start: 07-14-2025 End: 07-14-2025 Patient encounter procedure Suzy Muhammad MD -[facility] Work Phone: Start: 06-19-2025 End: 06-19-2025 ambulatory Suzy Muhammad MD Work Phone: [facility] Work Phone: Start: 06-19-2025 End: 06-19-2025 Patient encounter procedure Will Spear DO -[facility] Work Phone: Start: 06-16-2025 Non-patient / Non-visit Merle Coelho [facility] -[facility] Work Phone: Start: 06-02-2025 End: 06-02-2025 Bamboo flowsheet Cynthia CORDOVA Work Phone: [facility] Start: 06-02-2025 End: 06-03-2025 Bamboo flowsheet Cynthia CORDOVA Work Phone: [facility] Start: 06-02-2025 End: 06-03-2025 External Result Encounter Cynthia CORDOVA Work Phone: [facility] External Department Unsolicited Start: 06-02-2025 End: 06-02-2025 Office outpatient visit 15 minutes Cynthia CORDOVA Work Phone: [facility] Comment on above: Vaginal discharge; UTI symptoms; Yeast infection Start: 06-02-2025 End: 06-02-2025 ambulatory CYNTHIA PORTILLO Not Available Start: 04-01-2025 End: 04-01-2025 Patient encounter procedure Michelle Herreramathieu Zhou [facility] Work Phone: Start: 03-30-2025 End: 03-30-2025 Patient encounter procedure Marlys Anastasia Aguilarsnehaduke [facility] Work Phone: Start: 01-08-2025 End: 01-08-2025 ambulatory [facility] Work Phone: Start: 01-08-2025 End: 01-08-2025 Patient encounter procedure [facility] Work Phone: Start: 11-28-2024 End: 03-18-2025 [facility] Start: 11-06-2024 End: 11-06-2024 ambulatory [facility] Work Phone: Start: 11-06-2024 End: 11-06-2024 Patient encounter procedure [facility] Work Phone: Start: 08-19-2024 End: 08-19-2024 ambulatory [facility] Work Phone: Start: 08-19-2024 End: 08-19-2024 Patient encounter procedure [facility] Work Phone: Start: 07-18-2024 End: 07-18-2024 ambulatory [facility] Work Phone: Start: 07-18-2024 End: 07-18-2024 Patient encounter procedure [facility] Work Phone: Start: 02-15-2024 End: 02-15-2024 ambulatory [facility] Work Phone: Start: 02-15-2024 End: 02-15-2024 Patient encounter procedure [facility] Work Phone: Start: 01-19-2024 End: 01-19-2024 ambulatory [facility] Work Phone: Start: 01-19-2024 End: 01-19-2024 Patient encounter procedure [facility] Work Phone: Start: 12-07-2023 End: 12-07-2023 Patient encounter procedure [facility] Work Phone: Start: 10-11-2023 End: 10-11-2023 ambulatory Kelley Perez Other [employer] Other Start: 10-11-2023 Office outpatient visit 15 minutes Kelley Perez [facility] Start: 09-13-2023 End: 09-13-2023 ambulatory Kelley Perez Other [employer] Other Start: 09-13-2023 Office outpatient visit 25 minutes Kelley Perez [facility] Start: 09-04-2023 End: 09-04-2023 ambulatory Suzy Muhammad Other [employer] Other Start: 09-04-2023 Telephone encounter Suzy Muhammad [facility] Start: 08-28-2023 End: 08-28-2023 ambulatory Suzy Muhammad Other [employer] Other Start: 08-28-2023 Telephone encounter Suzy Muhammad [facility] Start: 08-21-2023 End: 08-21-2023 ambulatory Suzy Muhammad Other [employer] Other Start: 08-21-2023 Office outpatient visit 15 minutes Suzy Muhammad [facility] Start: 02-13-2023 End: 02-13-2023 ambulatory Suzy Muhammad Other [employer] Other Start: 02-13-2023 Telephone encounter Suzy Muhammad [facility] Start: 12-26-2022 End: 12-26-2022 ambulatory uSzy Muhammad Other [employer] Other Start: 12-26-2022 Telephone encounter Suzy Muhammad [facility] Start: 12-08-2022 End: 12-08-2022 ambulatory Suzy Muhammad Other [employer] Other Start: 12-08-2022 Office outpatient visit 15 minutes Suzy Muhammad [facility] Start: 09-27-2022 End: 09-28-[address] SUZY MUHAMMAD Facility:[facility] Start: 08-30-2022 Adult health examination Suzy Muhammad Other [employer] Other Start: 06-16-2022 End: 06-16-[address] JONA COOK Facility:[facility] Start: 05-25-2022 End: 05-25-2022 ambulatory Artis Whipple Other [employer] Other Start: 05-25-2022 Telephone encounter Artis Sparks [facility] Start: 02-22-2022 End: 02-23-[address] SUZY MUHAMMAD Facility:[facility] Start: 11-01-2021 End: 11-01-2021 ambulatory Valentin Hunt Other [employer] Other Start: 11-01-2021 Telephone encounter Valentin Hunt [facility] Start: 08-10-2021 End: 08-10-2021 ambulatory Valentin Hunt Other [employer] Other Start: 08-10-2021 Office outpatient ne w 30 minutes Valentin Hunt [facility] Procedures Date Procedure Procedure Detail Performing Clinician Start: 06-02-2025 Urnls dip stick/tabl et rgnt non-auto w/o micrscp Cynthia CORDOVA Work Phone: Start: 06-02-2025 RECURRENT VAGINITIS (HTRX) Cynthia CORDOVA Work Phone: Start: 04-29-2008 Microscopic observat ion [Identifier] in Cervix by Cyto stain Cynthia CORDOVA Work Phone: Plan of Treatment Date Care Activity Detail Author Start: 07-14-2025 Patient referral [facility] Work Phone: Start: 06-09-2025 Influenza vaccination [facility] Start: 06-02-2025 End: 06-02-2025 Patient encounter procedure 06/02/2025 11:10 AM EDT Office Visit [facility]RISTINE LEAVITT [address] [place] [address] Cynthia Portillo PA [address] [place] [address] Arrived CHRISTINE LEAVITT Comment on above: Arrived Start: 11-06-2024 Patient referral [facility] Work Phone: Start: 08-19-2024 Patient referral [facility] Work Phone: Start: 06-09-2024 COVID-19 Vaccine ( season) COVID-19 Vaccine () [facility] Start: 2019 Screening for malign ant neoplasm of breast Mammogram [facility] Start: 04-29-2011 Screening for malign ant neoplasm of cervix [facility] Start: 04-14-2011 Screening for malign ant neoplasm of cervix [facility] Start: 2009 Screening for malign ant neoplasm of cervix HPV/Cotest [facility] Start: 2000 Screening for malign ant neoplasm of cervix Pap Smear [facility] Start: 1998 DTaP,Tdap and Td Vaccines (1 - Tdap) DTaP,Tdap and Td Vaccines (1 - Tdap) [facility] Start: 1997 Adult BMI Screening Adult BMI Screen ing [facility] Start: 1991 Depression Screening Depression Scre ening [facility] Start: 1991 Tobacco Screening Tobacco Screening [facility] Start: 1979 Screening for malign ant neoplasm of colon [facility] CHLAMYDIA TRACHOMATI S (GENITO/STI) CHLAMYDIA TRACHOMATIS (GENITO/STI) Lab Routine Vaginal discharge Ordered: 06/02/2025 [facility] Comment on above: Ordered: 06/02/2025 Comprehensive metabo lic 2000 panel - Serum or Plasma [facility] DXA Skeletal system.axial Views for bone density [facility] MG Breast - bilatera l Screening [facility] Neisseria gonorrhoea e DNA [Presence] in Unspecified specimen by CORNIE with probe detection Neisseria gonorrhea DNA probe, direct Lab Routine Vaginal discharge Ordered: 06/02/2025 [facility] Comment on above: Ordered: 06/02/2025 Patient referral [facility] Work Phone: SURESWAB(R) ADVANCED VAGINITIS PLUS, TMA SURESWAB(R) ADVANCED VAGINITIS PLUS, TMA Pathology and Cytology Routine Vaginal discharge Ordered: 06/02/2025 [facility] Work Phone: Comment on above: Ordered: 06/02/2025 [facility] Immunizations Immunization Date Immunization Notes Care Provider Moisés reynolds 06-23-2021 COVID-19 Vaccine Pfi zer - Documentation Purposes Only Suzy Muhammad Other [facility] Payers Date Payer Category Payer Medicare MEDICARE [id number] 2003 Managed Care O (unspecified) [employer] [id number] 2003 Private Health Insurance [id number] 1979 Unknown [id number] 1979 Unknown [id number] 1979 Unknown [id number] 1979 Unknown [id number] 1959 Medicare [id number] 1959 Unknown [id number] Private Health Insurance [id number] Self-pay Self Pay [id number] Social History Date Type Detail Facility Start: 03-19-2019 Sex Assigned At [employer] Other Start: 12-07-2023 End: 12-07-2023 Tobacco smoking status NHIS Never smoked tobacco (finding) [facility] Start: 1980 Sex Assigned At Female [facility] Start: 05-12-2015 End: 08-19-2024 Sex Female (finding) [facility] [facility] Tobacco smoking status NHIS Tobacco smoking consumption unknown [facility] Start: 03-19-2019 History of Social function [facility] Start: 1980 Sex assigned at Not on file [facility] NEGATED: Highlighted row N [facility] Clinical Notes 07-30-2021 to 06-19-2025 Note Date & Type Note Facility 06-19-2025 Evaluation note Diagnosis Onset Date Resolution Left ankle sprain acute Septemb er 2024 10:53am Colon cancer screening acute Oc tober 2024 10:01am [facility] Work Phone: 1(333) 787-488908-25-2025 History of Present illness Narrative* ART Saldana - 06/02/2025 11:10 AM EDT Reason for Appointment: Patient ID: Saskia Balbuena is a 44 y.o. female who presents for Vaginitis/Bacterial Vaginosis Patient presents today for yeast infection/odor and STD Check. MEDICATIONS Current Outpatient Medications Medication Instructions Eliquis 2.5 mg, 2 times daily fluconazole (DIFLUCAN) 150 mg, Oral, Once, This is a 1 time dose, take single tablet by mouth. sulfamethoxazole-trimethoprim (Bactrim DS) 800-160 MG per tablet 1 tablet, Oral, 2 times daily ALLERGIES Allergies Allergen Reactions Levofloxacin Anaphylaxis Ciprofloxacin Other Reaction(s): Hives, Other: See Comments can't breath Clindamycin Diarrhea Other Reaction(s): Hives Heparin Other Reaction(s): Hypertension, Unknown Heparin (Bovine) Amoxicillin Rash Other Reaction(s): Hives Cephalexin Rash Latex Rash Moxifloxacin Rash PROBLEMS Active Ambulatory Problems Diagnosis Date Noted No Active Ambulatory Problems Resolved Ambulatory Problems Diagnosis Date Noted No Resolved Ambulatory Problems No Additional Past Medical History HISTORY PAST MEDICAL HISTORY SOCIAL HISTORY No past medical history on file. Social History Tobacco Use Smoking status: Not on file Smokeless tobacco: Not on file Substance Use Topics Alcohol use: Not on file Drug use: Not on file FAMILY HISTORY No family history on file. SURGICAL HISTORY History reviewed. No pertinent surgical history. REVIEW OF SYSTEMS Review of Systems: Review of Systems Constitutional: Negative. HENT: Negative. Eyes: Negative. Respiratory: Negative. Cardiovascular: Negative. Gastrointestinal: Negative. Genitourinary: Negative. Musculoskeletal: Negative. Skin: Negative. Neurological: Negative. All other systems reviewed and are negative. Hematological: Negative. Endocrine: Negative. Allergic/Immunologic: Negative. OBJECTIVE Objective: Physical Exam Constitutional: Appearance: Normal appearance. She is normal weight. HENT: Head: Normocephalic. Cardiovascular: Rate and Rhythm: Normal rate. Pulses: Normal pulses. Pulmonary: Effort: Pulmonary effort is normal. Breath sounds: Normal breath sounds. Abdominal: Palpations: Abdomen is soft. Musculoskeletal: General: Normal range of motion. Neurological: General: No focal deficit present. Mental Status: She is alert and oriented to person, place, and time. Psychiatric: Mood and Affect: Mood normal. Behavior: Behavior normal. Thought Content: Thought content normal. Judgment: Judgment normal. Vitals and nursing note reviewed. Vitals: Estimated body mass index is 30.04 kg/m as calculated from the following: Height as of this encounter: 5' 4 . Weight as of this encounter: 175 lb. BP: 122/74 No LMP recorded. ASSESSMENT & PLAN ICD-10-CM 1. Vaginal discharge N89.8 SURESWAB(R) ADVANCED VAGINITIS PLUS, TMA CHLAMYDIA TRACHOMATIS (GENITO/STI) Neisseria gonorrhea DNA probe, direct sulfamethoxazole-trimethoprim (Bactrim DS) 800-160 MG per tablet 2. UTI symptoms R39.9 POCT urinalysis dipstick manually resulted 3. Yeast infection B37.9 fluconazole (Diflucan) 150 MG tablet Pt was seen today for possible yeast infection/odor and UTI symptoms. Pt had cx's done and urine was sent out for cx as well. Pt was prescribed bactrium for a UTI and Diflucan for yeast infection. Documented by Zeny Calderon MA on behalf of: ART Saldana documented in this encounterKindred [id number] Evaluation note* Diagnosis Onset Date Resolution Status Admit Date Bacterial URI acute March 30, 2025 10:26am Otalgia of right ear acute April 01, 2025 4:13pm Left ankle sprain acute Septemb er 2024 10:53am [facility] Work Phone: 1(702) 395-903402-20-2025 Miscellaneous Notes* Telephone Encounter - Bonnie Hogue RN - 11/28/2024 10:08 AM EST Mechanic Senior called patient to schedule a new patient appointment in the [facility] Center with FVL/DLCO per and CXR. Unable to leave message due to voicemail not being set up. * Telephone Encounter - Quang Beatty MD - 11/28/2024 10:08 AM EST noted [facility]-20-2025 Telephone encounter Note* Telephone Encounter - Bonnie Hogue RN - 11/28/2024 10:08 AM EST Mechan[employer] called patient to schedule a new patient appointment in the Center with FVL/DLCO per and CXR. Unable to leave message due to voicemail not being set up. [facility] [place] [id number] Telephone encounter Note* Telephone Encounter - Quang Beatty MD - 11/28/2024 10:08 AM EST [facility] Phone: 1(137) 688-386001-29-2025 Chief complaint+Reason for visit Narrative * Chief Complaint Admit Date DEXA/Pulmonology Referral November 06, 2024 9:01am allergy shot January 08, 2025 1:59 pm Reason for Visit Admit Date Cystic fibrosis with pulmonary manifesta tions November 06, 2024 9:01am Lupus November 06, 2024 9 :01am Osteoporosis November 06, 2024 9 :01am Screening mammogram for breast cancer [facility] 2024 9:01am Thrush November 06, 2024 9 :01am [facility] Work Phone: 1([phone]) 113-169701-29-2025 Evaluation note* Diagnosis Onset Date Resolution Status Admit Date Cystic fibrosis with pulmona ry manifestations acute November 06 9:01am Lupus acute November 06, 2024 9:01am Osteoporosis acute October 9:01am Screening mammogram for pari st cancer acute November 06 9:01am Thrush acute November 06, 2024 9:01am [facility] Work Phone: 1(429) 372-592811-11-2024 Chief complaint+Reason for visit Narrative * Chief Complaint Admit Date CF August 19, 2024 9:43am DEXA/Pulmonology Referral November 06, 2024 9:01am Reason for Visit Admit Date Cystic fibrosis with pulmonary manifesta tions August 19, 2024 9:43am Lupus August 19, 2024 9:43am Cystic fibrosis with pulmonary manifesta tions November 06, 2024 9:01am Lupus November 06, 2024 9 :01am Osteoporosis November 06, 2024 9 :01am Screening mammogram for breast cancer [facility] 2024 9:01am Thrush November 06, 2024 9 :01am [facility] Work Phone: 1(478) 731-531711-11-2024 Evaluation note* Diagnosis Onset Date Resolution Status Admit Date Cystic fibrosis with pulmona ry manifestations acute August 19, 2 9:43am Lupus acute August 19, 2024 9:43am Cystic fibrosis with pulmona ry manifestations acute November 06 9:01am Lupus acute November 06, 2024 9:01am Osteoporosis acute October 9:01am Screening mammogram for pari st cancer acute November 06 9:01am Thrush acute November 06, 2024 9:01am [facility] Work Phone: 1(529) 132-833110-10-2024 Evaluation note* Diagnosis Onset Date Resolution Status Admit Date Bronchitis acute July 18, 2024 1:00pm Candidal stomatitis acute Octob er 2023 1:00pm Cystic fibrosis with pulmona ry manifestations acute July 18 1:00pm Cystic fibrosis with pulmona ry manifestations acute August 19, 9:43am Lupus acute August 19, 2024 9:43am [facility] Work Phone: 1([phone]) 893-463701-03-2024 Evaluation note* Encounter Date Diagnosis Assessment Notes Treatment Notes Treatment Clinical Notes Oct, Sore throat (ICD-10 - J02.9) Oct, Tonsillitis (ICD-10 - J03.90) Strep test negative. Will treat with antibiotic at this time based on clinical presentation that is highly suspicious of strep throat. Begin antibiotic today. Change toothbrush in 3 days, if symptoms are improving, to avoid re-infection. Continue tylenol or ibuprofen as needed for fevers and generalized discomfort. May also try salt water gargles for throat pain. Push fluids and rest. Practice good hand and cough hygiene. Avoid close contact with others. Do not share drinks or utensils. Patient should follow up with PCP if symptoms persist despite treatment, or sooner if symptoms worsen. Seek immediate eval via ER if warning symptoms of intractable pain or fevers, dysphagia, throat swelling, respir distress. Patient verbalized understanding and agreement with treatment plan. [employer] Other 12-06-2023 Evaluation note* Encounter Date Diagnosis Assessment Notes Treatment Notes Treatment Clinical Notes Sep, Atopic dermatitis, unspecified (ICD-10 - L20.9) rx sent, use as directed. recommended frequent lubrication with emollient creams to keep skin hydrated between applications of steroid rx. may also use otc PO antihistamines for itching. educated pt on measures to prevent flare-ups: avoid agents that may cause irritation (i.e. wool, fragrances), minimize sweating, avoid hot water for bathing, minimize use of soap if possible, stay hydrated, avoid excessive contact with water, avoid lotions that contain alcohol. follow up if new/worsening symtomsdespite treatment. pt verbalizes understanding and agrees c tx plan. Sep, Strain of right trapezius muscle, initial encounter (ICD-10 - S46.811A) Neuro exam WNL, no meningeal signs. discussed symptoms are consistent with trapezius muscle strain. rx sent, take as directed. Take muscle relaxer as directed. Do not drink with alcohol or use with other recreational drugs. May cause severe drowsiness. Do not operate a motor vehicle until you know how this medication will effect you. May also use Salonpas pain relieveing patches as needed, directed on use. warm compresses as directed. stretch and massage affected muscle as tolerated. immediate eval if warning symptoms of high fevers, neck stiffness, nausea, photophobia. otherwise follow up with PCP if new/worsening symptoms. pt verbalizes understanding and agrees c tx plan. [employer] Other 11-13-2023 Evaluation note* Encounter Date Diagnosis Assessment Notes Treatment Notes Treatment Clinical Notes Aug, Atopic dermatitis, unspecified (ICD-10 - L20.9) Discussed refill of a lower dose of prednisone. Multiple environmental triggers discussed. Also has autoimmune issues. Aug, Mass of right thigh (ICD-10 - R22.41) Pt will schedule US to identify cyst v. LN [employer] Other 05-08-2023 Evaluation note* Encounter Date Diagnosis Assessment Notes Treatment Notes Treatment Clinical Notes February, Bronchitis (ICD-10 - J40) [employer] Other 03-02-2023 Evaluation note* Encounter Date Diagnosis Assessment Notes Treatment Notes Treatment Clinical Notes Dec, Bronchitis (ICD-10 - J40) Cough may linger after viral or bacterial infections; sometimes for weeks. Patient should follow up with PCP if symptoms persist or worsen. Patient advised to go to ER immediately if experiencing shortness of breath or difficulty breathing. Patient verbalized understanding and agreement with treatment plan. Dec, Cystic fibrosis with pulmonary manifestations (ICD-10 - E84.0) Refilled steroid. Encouraged her to followup with pulmonology if needed. [employer] Other 08-17-2022 Evaluation note* Encounter Date Diagnosis Assessment Notes Treatment Notes Treatment Clinical Notes May, GERD (gastroesophageal reflux disease) (ICD-10 - K21.9) [employer] Other 01-24-2022 Evaluation note* Encounter Date Diagnosis Assessment Notes Treatment Notes Treatment Clinical Notes Oct, GERD (gastroesophageal reflux disease) (ICD-10 - K21.9) [employer] Other 11-02-2021 Evaluation note* Encounter Date Diagnosis Assessment Notes Treatment Notes Treatment Clinical Notes Aug, GERD (gastroesophageal reflux disease) (ICD-10 - K21.9) Aug, Dysphagia (ICD-10 - R13.10) [employer] Other 10-22-2021 NoteHNO ID: [id number] Author: Eunice Mtz PA-C Service: ? Author Type: Physician Toolroom Keeper Type: Progress Notes Filed: 07/30/2021 2:22 PM Note Text: CHIEF COMPLAINT: DVT HISTORY OF PRESENT ILLNESS: Saskia Balbuena is a 40 year old female who presents for follow up of above. History as noted below. Initial blood clot 2003- left leg- calf to thigh- treated for six months- coumadin. Circumstances- was on control, had also foot fracture- preceded clot and was non weight bearing at the time, was in a walking boot, less ambulatory and clot diagnosed after a car ride from [place]. NO issues after six months. Repeat ultrasound negative at three months and at six months. 02/2017 diagnosed with superficial phlebitis, resolved, went to [place] 03/2017- drove and upon arrival in [place]- noted leg swelling was diagnosed with DVT in [place]. 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 Interval History: Since her visit 2 years ago she was found to have an positive, speckled NICO and was diagnosed with SLE and now on Plaquenil and occasional Prednisone. She now has developed a rash on her left lower leg. She is scheduled to see dermatology next week. It is felt it could be fungal versus lupus rash. She is also having acid reflux and is scheduled to see GI. She denies any repeat infections. She still has chronic swelling in the left leg off and on. Overall she is doing well. Denies any bleeding, cough, shortness of breath, fever, chills or night sweats. PAST MEDICAL HISTORY Diagnosis Date - Acute DVT (deep venous thrombosis) (HCC) - Bronchiectasis - Cystic fibrosis - Embolism and thrombosis of unspecified site ankle fx 2003 - Neutropenia, unspecified (HCC) - Osteoporosis, unspecified - Pulmonary embolism (HCC) - Seborrheic dermatitis, unspecified lupus PAST SURGICAL HISTORY Procedure Laterality Date - LIGATE FALLOPIAN TUBE - REMOVE TONSILS/ADENOIDS,<12 Y/O Review of Social History includes: Social History Tobacco Use - Smoking status: Never Smoker - Smokeless tobacco: Never Used - Tobacco comment: PARENTS SMOKE Substance Use Topics - Alcohol use: No - Drug use: No FAMILY HISTORY Problem Relation Age of Onset - Lipids Mother - Lipids Father Current Outpatient Medications Medication Sig - hydrOXYchloroQUINE (PLAQUENIL) 200 mg tablet - pantoprazole DR (PROTONIX) 40 mg tablet - MULTI-VITAMIN ORAL Take by mouth. - mv-mn/iron/folic acid/herb 190 (VITAMIN D3 COMPLETE ORAL) Take by mouth once daily. - BIOTIN ORAL Take 500 mg by mouth once daily. - ferrous sulfate (IRON) 325 mg (65 mg iron) tablet Take 325 mg by mouth three times a week. - ELIQUIS 2.5 mg tab tab(s) TAKE 1 TABLET BY MOUTH TWICE A DAY - diphenhydrAMINE (BENADRYL) 25 mg capsule Take 25 mg by mouth every 6 hours as needed. - albuterol (PROVENTIL) 2.5 mg /3 mL (0.083 %) nebulizer solution INHALE 1 VIAL VIA NEBULIZER EVERY 4 HOURS NEEDED - nystatin (MYCOSTATIN) 100,000 unit/mL suspension Take 100,000 Units by mouth as needed. - predniSONE (DELTASONE) 20 mg tablet Take 20 mg by mouth as needed. No current facility-administered medications for this visit. REVIEW OF SYSTEMS: Constitutional: No fever, night sweats or unwanted weight loss. Head and neck: No recent epistaxis Respiratory: Denies dyspnea, cough or hemoptysis Cardiovascular: No leg swelling, chest pain or bleeding GI: No melena or hematochezia. Skin: Rash to left lower leg Neurologic: No focal weakness or sensory changes. Psychiatric: Normal affect. Hematopoietic: No easy bruising or enlarged lymphadenopathy. : No frequency or dysuria. PHYSICAL EXAMINATION: BP 152/89 Pulse 71 Temp 36.6 ?C (97.9 ?F) (Temporal) Resp 16 Ht 160 cm (5' 2.99 ) Wt 73.3 kg (161 lb 11.2 oz) SpO2 99% BMI 28.65 kg/m? General appearance: well appearing, alert, in no acute distress, well-hydrated, well nourished Skin: dry, circular rash with demarcated edges, similar to fungal rash Lungs: clear to auscultation, no wheezing or rhonchi Heart: Negative. RRR without murmur, gallop, or rubs. No ectopy. Abdomen: Normal abdominal exam, Abdomen soft, non-tender. Extremities: Extremities normal. No deformities, edema, or skin discoloration. Musculoskeletal: No joint swelling, deformity, or tenderness. Psyche: normal mood and affect LABS: Hemoglobin (g/dL) Date Value 07/30/2021 12.1 Hematocrit (%) Date Value 07/30/2021 36.7 WBC (k/uL) Date Value 07/30/2021 1.78 Platelet Count (k/uL) Date Value 07/30/2021 147 ASSESSMENT/PLAN: Saskia Balbuena is a 37 year old female with history of DVT x 2. First instance was clearly provoked- driving, oral contraceptive, decreased activity after broken foot. Second event happened after long drive but patient does note she was on a long road trip-however, she did stop intermittently. 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 [facility] noteNo InformationNortPal[facility] [employer] Other Evaluation note* Diagnosis Onset Date Resolution Status Allergic rhinitis acute Dysfunction of eustachian tube acute Allergic rhinitis acute Cystic fibrosis with pulmonary manifestations acute [facility] Work Phone: Evaluation noteNo assessment information available [facility] Work Phone: Evaluation note* Diagnosis Vaginal discharge Leukorrhea, not specified as infective UTI symptoms Yeast infection documented in this encounter [facility] Narrative - Reported* Type Description Date Medical History allergies Medical History frequent thush Medical History lupus Medical History hx DVT Surgical History tubal ligation Hospitalization History DVT [facility] [employer] Other History general Narrative - Reported* Type Description Date Medical History allergies Medical History frequent thush Medical History lupus Medical History hx DVT Medical History Leg pain, left Medical History Hypercoagulable state Medical History SLE (systemic lupus erythematosu s) Medical History Cystic fibrosis with pulmonary m anifestations Medical History Cellulitis of left leg Medical History Left breast mass Surgical History tubal ligation 2006 Hospitalization History DVT Hospitalization History SEE SURGICAL HX [employer] Other Hospital Discharge instructionsAmbulatory Orders* Referral to Pulmonology Time Frame: 08/19/24, Location: None [facility] Work Phone: Hospital Discharge instructionsAmbulatory Orders* Referral to Pulmonology Time Frame: 11/06/24, Location: None [facility] Work Phone: Hospital Discharge instructionsAmbulatory Orders* Referral to Gastroenterology Time Frame: 07/14/25, Location: None [facility] Work Phone: InstructionsNot on filedocumented in this encounter [facility] (narrative)No reason for referral information availableMartin Memorial Hospital Work Phone: Summary Purpose Family History Relationship Condition Age at Onset Recorded Date/T arianna father Hypertension Unknown Not Specified Hypertension Unknown Relationship Condition Age at Onset Recorded Date/T arianna father Hypertension Unknown mother Hypertension Unknown Advance Directives Advance Directive Response Recorded Date/ Time Advance Directives No September 11:40am Advance Directive Response Recorded Date/ Time Advance Directives No September 10:40am Chief Complaint and Reason for Visit Chief Complaint ear pain Cough Reason for Visit Allergic rhinitis Dysfunction of eustachian tube Allergic rhinitis Cystic fibrosis with pulmonary manifestations Chief Complaint ear pain Cough discussion about steroids Reason for Visit Allergic rhinitis Dysfunction of eustachian tube Allergic rhinitis Cystic fibrosis with pulmonary manifestations Chief Complaint cough Chief Complaint Admit Date cough July 18, 2024 1 :00pm CF August 19, 2024 9:43am Reason for Visit Admit Date Bronchitis July 18, 2024 1 :00pm Candidal stomatitis July 18, 2024 1 :00pm Cystic fibrosis with pulmonary manifesta tions July 18, 2024 1:00pm Cystic fibrosis with pulmonary manifesta tions August 19, 2024 9:43am Lupus August 19, 2024 9:43am Chief Complaint Admit Date Congestion March 30, 2025 10:2 6am Ear pain April 01, 2025 4:13 pm Amb Documentation June 16, 2025 1:48pm [facility] ER TB LT ANKLE INJURY WX June 19, 2025 10:53am Reason for Visit Admit Date Bacterial URI March 30, 2025 10:2 6am Otalgia of right ear April 01, 2025 4:1 3pm Left ankle sprain June 19, 2025 10:53am Chief Complaint Admit Date Amb Documentation June 16, 2025 1:48pm [facility] ER TB LT ANKLE INJURY WX June 19, 2025 10:53am Wellness, Discuss Meds July 14, 2025 10:01am Reason for Visit Admit Date Left ankle sprain June 19, 2025 10:53am Colon cancer screening July 14, 2025 10:01am Additional Source Comments INFORMATION SOURCE (unrecogn ized section and content) DATE CREATED AUTHOR 04/03/2021 [facility] DATE CREATED AUTHOR AUTHOR'S ORGANIZ ATION 12/21/2021 [facility] DATE CREATED AUTHOR AUTHOR'S ORGANIZ ATION 12/29/2021 [facility] DATE CREATED AUTHOR AUTHOR'S ORGANIZ ATION 01/13/2023 [facility] DATE CREATED AUTHOR AUTHOR'S ORGANIZ ATION 06/03/2025 [facility] EPIC REASON FOR VISIT (unrecogniz ed section and content) Reason Comments Vaginitis/Bacterial Vaginosis Care Teams (unrecognized sec tion and content) Team Status: Active Member Role Status Dates Suzy Muhammad MD Primary Care Provider Active Team Status: Active Member Role Status Dates Suzy Muhammad MD Primary Care Provider Active Start: June 16, 2025 Merle Coelho CMA Attending Provider Active Start: June 16, 2025 Team Status: Inactive Member Role Status Dates Suzy Muhammad MD Primary Care Provider Active Start: June 19, 2025 End: June 19, 2025 Will Spear DO Attending Provider Active St art: June 19, 2025 End: June 19, 2025 Team Status: Inactive Member Role Status Dates Suzy Muhammad MD Primary Care Provider Active Start: July 14, 2025 End: July 14, 2025 Suzy Muhammad MD Attending Provider Active St art: July 14, 2025 End: July 14, 2025 Team Status: Active Member Role Status Dates Suzy Muhammad MD Primary Care Provider Active Team Status: Inactive Member Role Status Dates Suzy Muhammad MD Primary Care Provider Active Start: December 07, 2023 End: December 07, 2023 LAUREN Navarrete Attending Provider Active Start: November End: December 07, 2023 Team Status: Inactive Member Role Status Dates Suzy Muhammad MD Primary Care Provide r, Attending Provider Active Start: January 19, 2024 End: January 19, 2024 Team Status: Inactive Member Role Status Dates Suzy Muhammad MD Primary Care Provide r, Attending Provider Active Start: February 15, 2024 End: February 15, 2024 Team Status: Inactive Member Role Status Dates Suzy Muhammad MD Primary Care Provide r, Attending Provider Active Start: July 18, 2024 End: July 18, 2024 Team Status: Inactive Member Role Status Dates Suzy Muhammad MD Primary Care Provide r, Attending Provider Active Start: August 19, 2024 End: August 19, 2024 Team Status: Inactive Member Role Status Veronica Muhammad MD Primary Care Provide r, Attending Provider Active Start: November 06, 2024 End: November 06, 2024 Team Status: Inactive Member Role Status Veronica Muhammad MD Primary Care Provider Active Start: January 08, 2025 End: January 08, 2025 LAUREN Navarrete Attending Provider Act tamiko Start: January 08, 2025 End: January 08, 2025 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 Relationship Specialty Start Date End Date Ovi Vasquez DO [address] [place] [id number] PCP - General Internal Medicine 06/02/25 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 Relationship Specialty Start Date End Date Ovi Vasquez DO [address] [place] [id number] PCP - General Internal Medicine 06/02/25 [employer]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 Relationship Specialty Start Date End Date Ovi Vasquez DO [address] [facility] [place] [id number] PCP - General Internal Medicine 06/02/25 Team Status: Inactive Member Role Status Dates Suzy Muhammad MD Primary Care Provider Active Start: March 30, 2025 End: March 30, 2025 STEWART Oh RN CANDY SEPARATOR ENROBING-C Attending Provider Active Start: March 30 End: March 30, 2025 Team Status: Inactive Member Role Status Dates Suzy Muhammad MD Primary Care Provider Active Start: April 01, 2025 End: April 01, 2025 Michelle Spear APRN Attending Provider Active Start: April 01, 2025 End: April 01, 2025 Team Status: Active Member Role Status Dates Suzy Muhammad MD Primary Care Provider Active Start: June 16, 2025 Merle Coelho CMA Attending Provider Active Start: June 16, 2025 Team Status: Inactive Member Role Status Dates Suzy Muhammad MD Primary Care Provider Active Start: June 19, 2025 End: June 19, 2025 Will Spear DO Attending Provider Active St art: June 19, 2025 End: June 19, 2025 Team Status: Inactive Member Role Status Dates Suzy Muhammad MD Primary Care Provider Active Start: July 14, 2025 End: July 14, 2025 Suzy Muhammad MD Attending Provider Active St art: July 14, 2025 End: July 14, 2025 Goals (unrecognized section and content) Goals may be documented in a n alternate section FOR RECORDS PERTAINING TO PATIENTS WHO ARE OR HAVE BEEN ENROLLED IN A CHEMICAL DEPENDENCY/SUBSTANCEABUSE PROGRAM, SOME INFORMATION MAY BE OMITTED. This clinical summary was aggregated from multiple sources. Caution should be exercised in using it in the provision of clinical care. This summary normalizes information from multiple sources, and as a consequence, information in this document may materially change the coding, format and clinical context of patient data. In addition, data may be omitted in some cases. CLINICAL DECISIONS SHOULD BE BASED ON THE PRIMARY CLINICAL RECORDS. [employer] provides no warranty or guarantee of the accuracy or completeness of information in this document.
[2025-07-27] MEDS: 0.9 % SODIUM CHLORIDE 1,000 ML 1000 ML IV (10:58)
[2025-07-27 11:02] LABS: Hematocrit 42.5 % (36.0-48.0); Hemoglobin 14.8 g/dL (12.0-16.0); Mean Corpuscular HGB Conc 34.8 g/dL (29.9-35.2); Mean Corpuscular Hemoglobin 31.5 pg (26.7-34.0); Mean Corpuscular Volume 90.4 fL (81.0-99.0); Platelet Count 148 10^3/uL (150-450); Red Blood Count 4.70 10^6/uL (4.20-5.40); White Blood Count 1.4 10^3/uL (4.0-11.0)
[2025-07-27 11:19] LABS: Anion Gap 12.3; Blood Urea Nitrogen 7.0 mg/dL (7.0-18.0); Calcium 8.8 mg/dL (8.5-10.1); Carbon Dioxide 26.3 mmol/L (21.0-32.0); Chloride 101 mmol/L (98-107); Estimated GFR (African America >60 (>=60 mL/min/1.73m^2); Estimated GFR (Non-African Ame >60 (>=60 mL/min/1.73m^2); Glucose 89 mg/dL (74-106); Potassium 3.6 mmol/L (3.5-5.1); Sodium 136 mmol/L (136-145)
[2025-07-27 11:47] LABS: Band Neutrophils Absolute 0.0 10^3/uL (0.0-0.3); Basophils Abs Manual 0.00 10^3/uL (0.00-0.10); Basophils Percent Manual 0.0 % (0.2-2.0); Eosinophils Absolute Manual 0.02 10^3/uL (0.00-0.70); Eosinophils Percent Manual 2.0 % (0.9-7.0); Lymphocytes Absolute Manual 0.39 10^3/uL (1.20-3.80); Lymphocytes Percent Manual 28.0 % (20.5-60.0); Monocytes Absolute Manual 0.14 10^3/uL (0.30-0.80); Monocytes Percent Manual 10.0 % (1.7-12.0); Segmented Neut Absolute Manual 0.81 10^3/uL (1.4-6.5); Segmented Neutrophils % Manual 58.0 (43.0-75.0)
[2025-07-27 12:15] LABS: C. Difficile PCR NEGATIVE
== END 2025-07-27 12:26 | disposition home or self-care (01) ==
PROVIDERS: Emergency Provider Emergency Medicine; PCP Family Medicine
DX: R19.7 Diarrhea, unspecified (principal)
CPT/HCPCS: 36415; 80048; 85007; 85027; 87045; 87046; 87427; 87493; 96360; 99284